=== PATIENT | male | born 1930 | race Caucasian/White ===

== ENCOUNTER 2016-03-06 11:34 | Inpatient (IN) | payer MEDICARE, OTHER ==
[2016-03-06] MEDS ORDERED: NS 0.9% IV ONE (12:20)
[2016-03-06] MEDS ORDERED: Levofloxacin 750 MG IVPREMIX(* 750 MG/150 ML BAG IVPB ONE ×2 (12:25→12:31)
[2016-03-06] MEDS ORDERED: Piperac/Tazob 3.375 gm in NS* 3.375 GM/100 ML BAG IVPB ONE (12:25)
[2016-03-06] MEDS ORDERED: Azithromycin IV(*) 500 MG in NS 0.9% 250 ML* 250 ML IVPB ONE (12:25)
[2016-03-06] MEDS ORDERED: cefTRIAXone VIAL(*) 1,000 MG in NS 0.9% 50 ML* 50 ML IVPB ONE (12:26)
[2016-03-06] MEDS ORDERED: methylPREDNISolone 125 MG* 2 ML VIAL IV ONE (12:32)
[2016-03-06 12:53] LABS: Hematocrit 35 % (42-52); Hemoglobin 11.5 g/dl (14.0-18.0); Mean Corpuscular HGB Conc 33 g/dl (31-36); Mean Corpuscular Hemoglobin 31 pg (27-31); Mean Corpuscular Volume 94 fL (80-94); Mean Platelet Volume 9 um3 (7.4-10.4); Red Blood Count 3.75 10^6/ul (4.0-5.4); Red Cell Distribution Width 16 % (10.5-15); White Blood Count 26.4 10^3/ul (3.5-10.8)
[2016-03-06 12:55] LABS: Add Diff/Slide Review? Slide Review Added; Comments Flag Yes
[2016-03-06 13:14] LABS: Albumin 3.3 g/dL (3.2-5.2); BUN/Creatinine Ratio 29.3 (8-20); Burr Cells 2+; Calcium 9.6 mg/dL (8.6-10.3); EGFR Non-African American 59.8 (>60); Globulin 3.3 g/dL (2-4); Potassium 3.8 mmol/L (3.5-5.0); Total Bilirubin 0.7 mg/dL (0.2-1.0); Total Protein 6.6 g/dL (6.4-8.9)
[2016-03-06 13:17] LABS: Troponin I 0.17 ng/mL (<0.04)
[2016-03-06 13:56] LABS: Urine Bacteria Absent (Absent); Urine Bilirubin Negative (Negative); Urine Glucose Negative (Negative); Urine Nitrite Negative (Negative)
--- NOTE | 2016-03-06 14:09 | RAD ---
INDICATION: Short of breath COMPARISON: November 07, 2014 TECHNIQUE: An AP portable view obtained at 1326 hours is submitted. FINDINGS: Bones/Soft Tissues: There are no acute bony findings. 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 There is left-sided cardiac pacemaker Cardiomediastinal: Limited assessment due to airspace disease in right hemithorax. Lungs: No gross infiltrates on the left. Progressive right-sided consolidative change superimposed upon chronic abnormalities. Pleura: There are no significant pleural effusions. Other: None IMPRESSION: PROGRESSIVE INFILTRATIVE CHANGE WITH CONSOLIDATION RIGHT HEMITHORAX SUPERIMPOSED UPON CHRONIC FINDINGS
--- NOTE | 2016-03-06 14:20 | ED ---
Erik Gardner Billy, scribed for Emilie Nur MD on 03/06/16 at 1224 . Complex/Multi-Sys Presentation - HPI Summary HPI Summary: Patient is an 85 year-old male coming to [facility] presenting with nasal and chest congestion, productive cough, and generalized weakness for the last 3 days. Patient is also experiencing auditory hallucinations. Family also reports that the patient has stopped eating yesterday. Medical records note that he was discharged with pneumonia in November 2014, and per today's nursing triage note, his states that he never fully recovered. He has recently been treated with multiple antibiotics. Nothing makes his symptoms better or worse. PMHx of asthma, COPD, PE. - History Of Current Complaint Chief Complaint: EDWeakness Time Seen by Provider: 03/06/16 12:14 Hx Obtained From: Patient, Family/Service Aide, Medical Records Onset/Duration: Gradual Onset, Lasting Days, Still Present Timing: Constant Severity Currently: Moderate Severity Initially: Moderate Aggravating Factor(s): none Alleviating Factor(s): none Associated Signs And Symptoms: Positive: Weakness, Cough, Decreased Oral Intake , Other - nasal and chest congestion; auditory hallucinations - Allergies/Home Medications Allergies/Adverse Reactions: Allergies Allergy/AdvReac Type Severity Reaction Status Date / Time Clopidogrel Allergy See Comment Verified 07/23/15 07:39 Home Medications: Home Medications Budesonide/Formote 160/4.5(NF) [Symbicort 160/4.5 (NF)] 2 puff INH BID 03/06/16 [History Confirmed 03/06/16] Clopidogrel TAB* [Plavix TAB*] 75 mg PO QAM 03/06/16 [History Confirmed 03/06/16 ] Metoprolol Tartrate TAB* [Lopressor TAB*] 12.5 mg PO BID 03/06/16 [History Confirmed 03/06/16] Multiple Vitamins W/ Minerals [Multivitamin Adults 50+] 1 tab PO DAILY 03/06/16 [History Confirmed 03/06/16] PMH/Surg Hx/FS Hx/Imm Hx Endocrine/Hematology History: Denies: Hx Diabetes Cardiovascular History: Reports: Hx Hypertension Denies: Hx Congestive Heart Failure, Hx Coronary Artery Disease, Hx Hypercholesterolemia, Hx Myocardial Infarction, Hx Valvular Heart Disease Respiratory History: Reports: Hx Asthma, Hx Chronic Obstructive Pulmonary Disease (COPD), Hx Pneumonia, Hx Pulmonary Embolism GI History: Reports: Hx Gastrointestinal Bleed History: Denies: Hx Renal Disease Sensory History: Denies: Hx Cataracts, Hx Deafness, Hx Hearing Aid Opthamlomology History: Denies: Hx Cataracts Neurological History: Reports: Other Neuro Impairments/Disorders - SUBDURAL HEMATOMA - Cancer History Cancer Type, Location and Year: prostate - Surgical History Surgery Procedure, Year, and Place: 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, HERNIA REPAIR X4, APPENDECTOMY Infectious Disease History: No Infectious Disease History: Denies: History Other Infectious Disease, Traveled Outside the [place] in Last 30 Days - Family History Known Family History: Negative: Cardiac Disease - Social History Occupation: Retired Lives: With Family - Alcohol Use: None Substance Use Type: Reports: None Smoking Status (MU): Never Smoked Tobacco Review of Systems Positive: Other - nasal congestion Positive: Cough, Other - chest congestion Positive: Other - decreased PO intake Neurological: Other - auditory hallucinations Positive: Weakness All Other Systems Reviewed And Are Negative: Yes Physical Exam Triage Information Reviewed: Yes Vital Signs On Initial Exam: Initial Vitals Temp Pulse Resp BP Pulse Ox 97.1 F 85 48 87/50 94 03/06/16 11:38 03/06/16 11:38 03/06/16 11:38 03/06/16 11:38 03/06/16 11:38 Vital Signs Reviewed: Yes Appearance: Positive: Ill-Appearing - Extremely ill-appearing, Cachectic Skin: Positive: Dry, Other - Extremities are cold to touch. Eyes: Positive: EOMI, ALTAF Neck: Positive: Supple, Nontender Respiratory/Lung Sounds: Positive: Decreased Breath Sounds - No breath sounds in right lung base; decreased breath sounds in left lung base. Cardiovascular: Positive: RRR Abdomen Description: Positive: Nontender, Soft Musculoskeletal: Positive: Edema Left - Bilateral lower extremity edema up to the knees., Edema Right - Bilateral lower extremity edema up to the knees., Other - Severely kyphotic. Neurological: Positive: Sensory/Motor Intact, Alert, Oriented to Person Place, Time, CN Intact II-III Psychiatric: Positive: Affect/Mood Appropriate Diagnostics - Vital Signs Vital Signs Temp Pulse Resp BP Pulse Ox 03/06/16 12:16 96 03/06/16 12:03 22 86/59 03/06/16 11:38 97.1 F 85 48 87/50 94 - Laboratory Lab Results: Lab Results 03/06/16 03/06/16 03/06/16 Range/Units 12:15 12:15 12:15 WBC 26.4 H (3.5-10.8) 10^3/ul RBC 3.75 L (4.0-5.4) 10^6/ul Hgb 11.5 L (14.0-18.0) g/dl Hct 35 L (42-52) % MCV 94 (80-94) fL MCH 31 (27-31) pg MCHC 33 (31-36) g/dl RDW 16 H (10.5-15) % Plt Count 312 (150-450) 10^3/ul MPV 9 (7.4-10.4) um3 Neut % (Auto) 97.2 H (38-83) % Lymph % (Auto) 0.5 L (25-47) % [place] % (Auto) 2.1 (1-9) % Eos % (Auto) 0 (0-6) % Baso % (Auto) 0.2 (0-2) % Absolute Neuts (auto) 25.6 H (1.5-7.7) 10^3/ul Absolute Lymphs (auto) 0.1 L (1.0-4.8) 10^3/ul Absolute Monos (auto) 0.6 (0-0.8) 10^3/ul Absolute Eos (auto) 0 (0-0.6) 10^3/ul Absolute Basos (auto) 0.1 (0-0.2) 10^3/ul Absolute Nucleated RBC 0 10^3/ul Nucleated RBC % 0 Normal RBC Morphology Not Reportable Vibha Cells 2+ INR (Anticoag Therapy) 0.92 (0.89-1.11) APTT 34.3 (26.0-36.3) seconds Sodium 134 (133-145) mmol/L Potassium 3.8 (3.5-5.0) mmol/L Chloride 89 L (101-111) mmol/L Carbon Dioxide 36 H (22-32) mmol/L Anion Gap 9 (2-11) mmol/L BUN 34 H (6-24) mg/dL Creatinine 1.16 (0.67-1.17) mg/dL Est GFR ( Amer) 77.0 (>60) Est GFR (Non-Af Amer) 59.8 (>60) BUN/Creatinine Ratio 29.3 H (8-20) Glucose 92 (70-100) mg/dL Lactic Acid (0.5-2.0) mmol/L Calcium 9.6 (8.6-10.3) mg/dL Total Bilirubin 0.70 (0.2-1.0) mg/dL AST 39 (13-39) U/L ALT 23 (7-52) U/L Alkaline Phosphatase 155 H (34-104) U/L Troponin I 0.17 H* (<0.04) ng/mL B-Natriuretic Peptide ( - 100) pg/mL Total Protein 6.6 (6.4-8.9) g/dL Albumin 3.3 (3.2-5.2) g/dL Globulin 3.3 (2-4) g/dL Albumin/Globulin Ratio 1.0 (1-3) Urine Color Urine Appearance Urine pH (5-9) Ur Specific Lawrence (1.010-1.030) Urine Protein (Negative) Urine Ketones (Negative) Urine Blood (Negative) Urine Nitrate (Negative) Urine Bilirubin (Negative) Urine Urobilinogen (Negative) Ur Leukocyte Esterase (Negative) Urine WBC (Auto) (Absent) Urine RBC (Auto) (Absent) Ur Squamous Epith Cells (Absent) Urine Bacteria (Absent) Hyaline Casts (Absent) Urine Glucose (Negative) Influenza A (Rapid) (Negative) Influenza B (Rapid) (Negative) 03/06/16 03/06/16 03/06/16 Range/Units 12:15 12:15 12:49 WBC (3.5-10.8) 10^3/ul RBC (4.0-5.4) 10^6/ul Hgb (14.0-18.0) g/dl Hct (42-52) % MCV (80-94) fL MCH (27-31) pg MCHC (31-36) g/dl RDW (10.5-15) % Plt Count (150-450) 10^3/ul MPV (7.4-10.4) um3 Neut % (Auto) (38-83) % Lymph % (Auto) (25-47) % [place] % (Auto) (1-9) % Eos % (Auto) (0-6) % Baso % (Auto) (0-2) % Absolute Neuts (auto) (1.5-7.7) 10^3/ul Absolute Lymphs (auto) (1.0-4.8) 10^3/ul Absolute Monos (auto) (0-0.8) 10^3/ul Absolute Eos (auto) (0-0.6) 10^3/ul Absolute Basos (auto) (0-0.2) 10^3/ul Absolute Nucleated RBC 10^3/ul Nucleated RBC % Normal RBC Morphology Vibha Cells INR (Anticoag Therapy) (0.89-1.11) APTT (26.0-36.3) seconds Sodium (133-145) mmol/L Potassium (3.5-5.0) mmol/L Chloride (101-111) mmol/L Carbon Dioxide (22-32) mmol/L Anion Gap (2-11) mmol/L BUN (6-24) mg/dL Creatinine (0.67-1.17) mg/dL Est GFR ( Amer) (>60) Est GFR (Non-Af Amer) (>60) BUN/Creatinine Ratio (8-20) Glucose (70-100) mg/dL Lactic Acid 2.3 H* (0.5-2.0) mmol/L Calcium (8.6-10.3) mg/dL Total Bilirubin (0.2-1.0) mg/dL AST (13-39) U/L ALT (7-52) U/L Alkaline Phosphatase (34-104) U/L Troponin I (<0.04) ng/mL B-Natriuretic Peptide 317 H ( - 100) pg/mL Total Protein (6.4-8.9) g/dL Albumin (3.2-5.2) g/dL Globulin (2-4) g/dL Albumin/Globulin Ratio (1-3) Urine Color Urine Appearance Urine pH (5-9) Ur Specific Lawrence (1.010-1.030) Urine Protein (Negative) Urine Ketones (Negative) Urine Blood (Negative) Urine Nitrate (Negative) Urine Bilirubin (Negative) Urine Urobilinogen (Negative) Ur Leukocyte Esterase (Negative) Urine WBC (Auto) (Absent) Urine RBC (Auto) (Absent) Ur Squamous Epith Cells (Absent) Urine Bacteria (Absent) Hyaline Casts (Absent) Urine Glucose (Negative) Influenza A (Rapid) Negative (Negative) Influenza B (Rapid) Negative (Negative) 03/06/16 Range/Units 13:39 WBC (3.5-10.8) 10^3/ul RBC (4.0-5.4) 10^6/ul Hgb (14.0-18.0) g/dl Hct (42-52) % MCV (80-94) fL MCH (27-31) pg MCHC (31-36) g/dl RDW (10.5-15) % Plt Count (150-450) 10^3/ul MPV (7.4-10.4) um3 Neut % (Auto) (38-83) % Lymph % (Auto) (25-47) % [place] % (Auto) (1-9) % Eos % (Auto) (0-6) % Baso % (Auto) (0-2) % Absolute Neuts (auto) (1.5-7.7) 10^3/ul Absolute Lymphs (auto) (1.0-4.8) 10^3/ul Absolute Monos (auto) (0-0.8) 10^3/ul Absolute Eos (auto) (0-0.6) 10^3/ul Absolute Basos (auto) (0-0.2) 10^3/ul Absolute Nucleated RBC 10^3/ul Nucleated RBC % Normal RBC Morphology Vibha Cells INR (Anticoag Therapy) (0.89-1.11) APTT (26.0-36.3) seconds Sodium (133-145) mmol/L Potassium (3.5-5.0) mmol/L Chloride (101-111) mmol/L Carbon Dioxide (22-32) mmol/L Anion Gap (2-11) mmol/L BUN (6-24) mg/dL Creatinine (0.67-1.17) mg/dL Est GFR ( Amer) (>60) Est GFR (Non-Af Amer) (>60) BUN/Creatinine Ratio (8-20) Glucose (70-100) mg/dL Lactic Acid (0.5-2.0) mmol/L Calcium (8.6-10.3) mg/dL Total Bilirubin (0.2-1.0) mg/dL AST (13-39) U/L ALT (7-52) U/L Alkaline Phosphatase (34-104) U/L Troponin I (<0.04) ng/mL B-Natriuretic Peptide ( - 100) pg/mL Total Protein (6.4-8.9) g/dL Albumin (3.2-5.2) g/dL Globulin (2-4) g/dL Albumin/Globulin Ratio (1-3) Urine Color Rohini Urine Appearance Cloudy Urine pH 5.0 (5-9) Ur Specific Lawrence 1.017 (1.010-1.030) Urine Protein 1+(30 mg/dl) H (Negative) Urine Ketones Negative (Negative) Urine Blood Negative (Negative) Urine Nitrate Negative (Negative) Urine Bilirubin Negative (Negative) Urine Urobilinogen Negative (Negative) Ur Leukocyte Esterase Negative (Negative) Urine WBC (Auto) Absent (Absent) Urine RBC (Auto) Absent (Absent) Ur Squamous Epith Cells Present H (Absent) Urine Bacteria Absent (Absent) Hyaline Casts Present H (Absent) Urine Glucose Negative (Negative) Influenza A (Rapid) (Negative) Influenza B (Rapid) (Negative) Result Diagrams: 03/06/16 12:15 03/06/16 12:15 Lab Statement: Any lab studies that have been ordered have been reviewed, and results considered in the medical decision making process. - Radiology CXR Radiology Interpretation Completed By: Radiologist - PROGRESSIVE INFILTRATIVE CHANGE WITH CONSOLIDATION RIGHT HEMITHORAX SUPERIMPOSED UPON CHRONIC FINDINGS - EKG 1300 EKG Interpretation: paced rhythm 71 bpm Re-Evaluation - Re-Evaluation First Eval Re-Evaluation Time: 13:23 Complex Multi-Symp Course/Dx Course Of Treatment: After discussion with both the patient and his family, at this time, they agree with the plan to intubate and resusucitate the patient if needed. 85 yo male cachectic with dry mucus membranes, tachypneic with copd and unremitting cough since nov after diagnosis of pneumonia. Per family he has been on multiple abx since discharge.pt stopped eating 1-2 days ago. Very reduced breath sounds (if any) on Rt, with green sputum,IV abx for Icu/ pseudomonas risk and 30cc/kg on pressure bag ordered upon initial evaluation of patient. WBc of 26K, bp remained in the 80's, ICU attending consulted and pt is now admitted to an icu bed - Diagnoses Provider Diagnoses: Pneumonia, Sepsis - Physician Notifications Discussed Care Of Patient With: Dr. Goins (hospitalist) @ 1310. Dr. Goldstein ( chamber walker) @ [id number]: will see patient in the ED. Discharge - Discharge Plan Condition: Stable Disposition: ADMITTED TO [facility] documentation as recorded by the Erik van Billy accurately reflects the service I personally performed and the decisions made by me, Emilie Nur MD.
[2016-03-06] MEDS ORDERED: cefTRIAXone VIAL(*) 1,000 MG in NS 0.9% 50 ML* 50 ML IVPB SCH (15:00)
[2016-03-06] MEDS ORDERED: Levofloxacin 500 MG IVPREMIX(* 500 MG/100 ML BAG IVPB ONE (15:30)
[2016-03-06] MEDS: Albuterol 2.5 MG/3 ML NEB.SOL* (0.083%) INH SCH ×2 (19:24→19:56)
[2016-03-06] MEDS: Heparin VIAL(*) 5000 UNITS/ML VIAL (FIVE THOUSAND) SUBCUT SCH (20:50)
[2016-03-06] MEDS: Metoprolol Tartrate TAB* 25 MG PO SCH (20:51)
--- NOTE | 2016-03-06 21:17 | HP ---
ADMISSION HISTORY AND PHYSICAL: DATE OF ADMISSION: 03/06/16 REASON FOR ADMISSION: Shortness of breath. HISTORY OF PRESENT ILLNESS: This patient is an 85-year-old white male with a history of asthma, pulmonary emboli, and hypertension, who presented to the emergency department today with a complaint of gradually increasing shortness of breath and difficulty swallowing. In the emergency department, chest x-ray showed extensive infiltration of the right lung, and because the patient was tachypneic and generally ill appearing, the decision was made to admit the patient to the intensive care unit for Vapotherm to expand right lung. The patient is a full code and family wants intubation if necessary. The patient has had substantial weight loss over the last year and has also had difficulty swallowing, and has an appointment to see Dr. Gutierrez of the GI service to have the dysphagia evaluated. He was hospitalized at [facility] [place] in November 2014 with the same complaints (shortness of breath and difficulty swallowing) and was treated for a right lower lobe pneumonia and discharged. The patient also has a history of coronary artery disease, status post stent placement 2 to 3 years ago, and has an implanted cardiac pacemaker. PAST SURGICAL HISTORY: 1. Cataract surgery. 2. Hernia repair. 3. Appendectomy. 4. Prostatectomy. OUTPATIENT MEDICATIONS: 1. Metoprolol tartrate 12.5 mg p.o. b.i.d. 2. Symbicort 2 puffs b.i.d. 3. Nitroglycerin 0.4 mg sublingually p.r.n. 4. Lipitor 40 mg daily. 5. Albuterol, 2.5 mg by neb 3 times daily. 6. Lasix 40 mg daily. DRUG ALLERGIES: CLOPIDOGREL: reaction unclear. REVIEW OF SYSTEMS: Noncontributory. PHYSICAL EXAMINATION GENERAL: The patient is a cachectic elderly male who appeared to be breathing comfortably. VITAL SIGNS: Temperature 97.2, heart rate 70 and regular, blood pressure 95/65 , O2 sat is 97% on 35 L per minute nasal O2 at a 100% FIO2. HEENT: There is no facial asymmetry. NECK: Supple and there were no masses noted. LUNGS: There were diminished breath sounds throughout the right lung with coarse rhonchi on both sides. No crackles were appreciated. CARDIAC: Exam revealed no murmurs, rubs, or gallops. 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 ABDOMEN: Soft and nontender. EXTREMITIES: Warm and there was no cyanosis or edema. ADMISSION LABORATORY DATA: Significant for a leukocytosis of 26.4, serum bicarbonate of 36, BUN of 34, and creatinine of 1.1. Lactic acid level of 2.3. Troponin is 0.17. Alk phos of 155 and BNP of 317. Albumin was 3.3 despite apparent cachectic appearance. Chest x-ray showed extensive consolidation and volume loss in the right lung of unknown duration (some changes may have been chronic due to chest wall abnormality). EKG showed a paced rhythm with no other abnormalities noted. IMPRESSION: This is an ill-appearing, dehydrated, elderly gentleman whose respiratory complaints appear to be more chronic than acute, and whose main problem appears to be extensive weight loss and cachexia. The patient has a severe chest wall deformity that will predispose him to lung infections and may also explain the changes on the chest x-ray. The difficulty swallowing appears to be a chronic problem, but deserves evaluation. MANAGEMENT PLAN: Acute management will include antibiotics (ceftriaxone and levofloxacin), high flow, humidified nasal O2 (Vapotherm), and intravenous fluids. We will continue outpatient medications and consult GI for evaluation of swallowing difficulty. The patient's present at the bedside and is aware of the admission diagnosis and management plan. CRITICAL CARE TIME: Sixty minutes. [id number]/CPS #: [id number] ALBERTO
[2016-03-06] MEDS ORDERED: [UNRECOGNIZED DRUG - REMARK] IV ONE (22:15)
[2016-03-07] MEDS ORDERED: LR IV ONE (00:33)
[2016-03-07] MEDS: Albuterol 2.5 MG/3 ML NEB.SOL* (0.083%) INH SCH ×4 (03:16→21:03)
[2016-03-07 05:17] LABS: Hematocrit 31 % (42-52); Hemoglobin 10.1 g/dl (14.0-18.0); Mean Corpuscular HGB Conc 33 g/dl (31-36); Mean Corpuscular Hemoglobin 31 pg (27-31); Mean Corpuscular Volume 94 fL (80-94); Mean Platelet Volume 9 um3 (7.4-10.4); Red Blood Count 3.27 10^6/ul (4.0-5.4); Red Cell Distribution Width 16 % (10.5-15); White Blood Count 13.4 10^3/ul (3.5-10.8)
[2016-03-07 05:30] LABS: BUN/Creatinine Ratio 32.6 (8-20); Calcium 8.9 mg/dL (8.6-10.3); EGFR African American 108.7 (>60); EGFR Non-African American 84.5 (>60); Potassium 4.1 mmol/L (3.5-5.0)
--- NOTE | 2016-03-07 08:51 | RAD ---
Indication: Pneumonia and atelectasis. Single frontal view of the chest performed at 0600 hours was reviewed. Comparison is made with previous exam dated March 06, 2016. Cardiomegaly is noted. Tortuous descending aorta is noted. Right lower lobe and right upper lobe airspace disease in density persists. Pacemaker leads are in place. The visualized left lung is otherwise unremarkable. There may be a loculated right pleural effusion noted or atelectasis in the right base. IMPRESSION: PROGRESSIVE DENSITY IN THE RIGHT LUNG BASE WITH QUESTION OF ATELECTASIS, CONSOLIDATION OR RIGHT PLEURAL EFFUSION. RIGHT UPPER LOBE INFILTRATE IS UNCHANGED.
[2016-03-07] MEDS ORDERED: Clopidogrel TAB* 75 MG PO SCH (09:00)
[2016-03-07] MEDS: LR @ 20 MLS/HR IV SCH ×2 (09:32→21:45)
[2016-03-07] MEDS: Metoprolol Tartrate TAB* 25 MG PO SCH ×2 (11:32→21:03)
[2016-03-07] MEDS: cefTRIAXone* 1 GM in NS 0.9% 50 ML BAG IVPB SCH (11:33)
[2016-03-07] MEDS: Heparin VIAL(*) 5000 UNITS/ML VIAL (FIVE THOUSAND) SUBCUT SCH ×2 (11:43→21:12)
[2016-03-07] MEDS ORDERED: Morphine INJ* 4 MG/ML 1 ML CARPUJECT ONE (14:55)
[2016-03-07] MEDS: Morphine INJ* 4 MG/ML 1 ML CARPUJECT IV PRN ×2 (15:12→20:11)
[2016-03-07] MEDS ORDERED: Levofloxacin 250 MG IVPREMX(*) 250 MG/50 ML BAG IVPB SCH (15:30)
--- NOTE | 2016-03-07 15:33 | PN ---
Critical Care Services: Patient had an uneventful evening but this AM experienced increasing SOB and now on BiPAP. Has problems swallowing pureed food. Vital Signs: Temp Pulse Resp BP SpO2 FiO2 97.5 F 75 34 110/65 96 75 Physical Exam: Gen:Alert, oriented Lungs:scattered rhonchi both lungs. Decreased breath sounds on right Extremities:cool. No cyanosis or edema. Fluid Balance (Past 24 Hours): 03/07/16 06:59 Intake Total 3395 Output Total 375 Balance +3020 Weight 135 lb Intake: IV Fluids 3315 LR 3315 IVPB 55 ABX - CEFTRIAXONE 55 Oral 25 Output: Blackwell 375 Labs: 0 03/07/16 03/07/16 05:08 05:08 WBC 13.4 Hgb 10.1 Hct 31 Plt Count 270 Sodium 132 Potassium 4.1 Chloride 95 Carbon Dioxide 32 BUN 28 Creatinine 0.86 Glucose 100 Calcium 8.9 Studies: CXR: No change from admission film. Sputum culture growing Staph aureus (and Gram's stain shows lots of gram-positive cocci) Nutrition: Mechanical soft diet. Impression: Borderline respiratory status - has problems clearing secretions due to chest wall deformity and generalized weakness (i.e., chronic problems), and now may have staph pneumonia. Opacifications on CXR may also represent lobar atelectasis , or may be chronic changes associated with chest wall deformity.. Plan: Start Rx with vancomycin and d/c levofloxacin. Use BiPAP to re-expand atelectatic areas of right lung, and trial intubation, if necessary (can perform bronchoscopy if intubated). Will also ask for swallowing evaluation if off ventilator. Prognosis guarded Critical Care Time: 40 minutes
[2016-03-07] MEDS ORDERED: Vancomycin(*) 1,000 MG in NS 0.9% 250 ML* 250 ML IVPB ONE (15:46)
[2016-03-07] MEDS ORDERED: Furosemide IV* 10 MG/ML VIAL (40 MG) IV SLOW PU ONE (19:58)
[2016-03-07] MEDS ORDERED: Morphine INJ* 2 MG/ML 1 ML CARPUJECT IV ONE (20:05)
[2016-03-07 20:08] LABS: FIO2 100
[2016-03-07] MEDS ORDERED: Furosemide IV* 10 MG/ML VIAL (40 MG) ONE (20:10)
[2016-03-07 20:15] LABS: PCO2 Arterial > 124 mmHg (35-45)
[2016-03-07] MEDS ORDERED: Succinylcholine* 20 MG/ML 10 ML VIAL ONE (20:17)
[2016-03-07] MEDS ORDERED: Etomidate* 2 MG/ML 20 ML VIAL (40 MG) ONE (20:20)
[2016-03-07] MEDS ORDERED: Propofol* 100 ML ONE (20:31)
--- NOTE | 2016-03-07 20:47 | PN ---
Milton Gardner Anna, scribed for Horacio Enciso MD on 03/07/16 at 2036 . Procedures - Intubation Time of Intubation: 20:30 Intubation Method: orotracheal Tube Size (cm): 7.5 - with glidescope Medications: Succinylcholine Intubation Complications: no complications Post Intubation Xray: Yes - hospitalist tto review Progress/Xray Impression: 100 sux and 20 etomidate; lung sounds verified bilat , no epigastric sounds The documentation as recorded by the Milton van Anna accurately reflects the service I personally performed and the decisions made by Zaria lynn Jerry, MD.
--- NOTE | 2016-03-07 21:01 | RAD ---
Indication: Dyspnea. Single frontal view of the chest performed at 2015 hours was reviewed. Comparison is made with previous exam dated earlier the same day. Cardiomegaly is noted. Right pleural effusion is noted. Interstitial edema is noted. Overall exam does not appear to be significantly changed since previous exam. IMPRESSION: PERSISTENT RIGHT PLEURAL EFFUSION AND RIGHT UPPER LOBE INFILTRATE.
--- NOTE | 2016-03-07 21:31 | RAD ---
Indication: Endotracheal tube placement, respiratory failure. Single frontal view of the chest performed at 2040 hours was reviewed. Comparison is made with previous exam dated March 07, 2016. ET tube is just at the reese. Right pleural effusion in the right upper lobe infiltrate persists. IMPRESSION: ET TUBE JUST ABOVE THE REESE. RIGHT PLEURAL EFFUSION AND RIGHT UPPER LOBE INFILTRATE PERSISTS.
[2016-03-07] MEDS ORDERED: NS 0.9% 1000 ML* 1,000 ML IV ONE (21:39)
[2016-03-07 22:52] LABS: PCO2 Arterial 80 mmHg (35-45)
[2016-03-07] MEDS ORDERED: Dexmedetomidine* 50 ML ONE (23:29)
[2016-03-08] MEDS ORDERED: NS 0.9% 1000 ML* 1,000 ML IV ONE (00:17)
[2016-03-08] MEDS: Chlorhexidine MOUTHWASH 0.12%* 15 ML UDC SWISH SPIT SCH ×7 (00:18→22:21)
[2016-03-08] MEDS: Morphine INJ* 4 MG/ML 1 ML CARPUJECT IV PRN ×4 (00:44→20:21)
[2016-03-08] MEDS: Albuterol 2.5 MG/3 ML NEB.SOL* (0.083%) INH SCH ×5 (02:40→21:14)
[2016-03-08] MEDS: Dexmedetomidine* 50 ML IVPB SCH ×6 (03:03→21:43)
[2016-03-08] MEDS ORDERED: NS 0.9% 1000 ML* 1,000 ML IV SCH (04:15)
[2016-03-08] MEDS ORDERED: NS 0.9% 250 ML* 250 ML IV SCH (05:00)
[2016-03-08 05:07] LABS: Hematocrit 30 % (42-52); Hemoglobin 9.6 g/dl (14.0-18.0); Mean Corpuscular HGB Conc 32 g/dl (31-36); Mean Corpuscular Hemoglobin 30 pg (27-31); Mean Corpuscular Volume 94 fL (80-94); Mean Platelet Volume 9 um3 (7.4-10.4); Red Blood Count 3.15 10^6/ul (4.0-5.4); Red Cell Distribution Width 16 % (10.5-15); White Blood Count 15.2 10^3/ul (3.5-10.8)
[2016-03-08] MEDS ORDERED: Vancomycin(*) 750 MG in NS 0.9% 250 ML* 250 ML IVPB SCH (06:00)
[2016-03-08] MEDS: Heparin VIAL(*) 5000 UNITS/ML VIAL (FIVE THOUSAND) SUBCUT SCH ×2 (11:22→21:12)
[2016-03-08] MEDS: cefTRIAXone* 1 GM in NS 0.9% 50 ML BAG IVPB SCH (11:47)
[2016-03-08] MEDS: methylPREDNISolone SOD 40 MG* 1 ML VIAL IV SCH ×2 (12:00→19:43)
--- NOTE | 2016-03-08 12:03 | PN ---
Progress Note - Progress Note Note: CRITICAL CARE MEDICINE Date: 03/08/16 Time: 900 SUBJECTIVE: Patient seen and examined. at bedside. Sedated with precedex. Unable to obtain og/ng last pm. PHYSICAL EXAM: thin, frail, kyphotic Vital Signs: Reviewed. Neurologic: awakens, slow to communicate. HEENT: pupils equal. Sclera anicteric. Trachea midline. Cardiovascular: distant, S1 S2 Respiratory: dec bs on right with mild rhonchi and coarse Abdomen: Soft, nt. No r/g/r. Extremities: Warm. Chronic dep edema LABS: Reviewed. IMAGING: Reviewed. MEDICATIONS: Reviewed. ASSESSMENT: 85 M Acute hypercarbic > hypoxic resp failure COPD exac Staph A pna h/o CAD PLAN: Neurologic: lower dose precedex. not requiring much else. watch for delirium Cardiovascular: Perfusing. Interstial volume overload vs his optivolemic status. Can dec IVF. Respiratory: chad vol control and no surprise having high airway pressures. needs time to recruit. sbt festus am and look towards to liberation, potentially to niv, as his mechanics will never indicate well and see if he can maximize. may need lasix still Gastrointestinal: ogt was not able to pass. can re-attempt later, but do not traumatize as we will look to liberate tomorrow perhaps anyway. sup Renal/Metabolic: back down on fluid and see if he can mobilize Infectious Disease: can utilize C3 alone for pna coverage, although this seems more like aspiration then typical pneumonia. no indication of mrsa coverage need. Hematology: stable. hsq Endocrine: course of steroids for what it may be worth to help allievate his acute ailment. Musculoskeletal: bedrest today given his limits. Psych/Social: updated and expressed understanding Supportive and preventative care as ordered. SUP: ppi VTE prophylaxis: heparin Blackwell catheter given critical illness, monitoring needs for accurate assessment of BR[place] and KDIGO criteria for critically ill patients and to avoid potential harms of urinary retention, skin breakdown/ulcers. Disposition: ICU Code Status: Full Critical Care Time: 45min Olivia Garcia DO
[2016-03-08] MEDS: Pantoprazole IV* 40 MG IV SCH (13:00)
[2016-03-09] MEDS: Albuterol 2.5 MG/3 ML NEB.SOL* (0.083%) INH SCH ×4 (01:12→20:13)
[2016-03-09] MEDS: Morphine INJ* 4 MG/ML 1 ML CARPUJECT IV PRN ×4 (01:44→19:26)
[2016-03-09] MEDS: Chlorhexidine MOUTHWASH 0.12%* 15 ML UDC SWISH SPIT SCH ×6 (02:40→21:24)
[2016-03-09] MEDS: Dexmedetomidine* 50 ML IVPB SCH ×4 (02:55→12:15)
[2016-03-09] MEDS: methylPREDNISolone SOD 40 MG* 1 ML VIAL IV SCH ×3 (04:30→19:26)
[2016-03-09] MEDS ORDERED: Vancomycin Trough Check NOTE FOLLOW UP ONE (05:30)
[2016-03-09 06:20] LABS: Hematocrit 32 % (42-52); Hemoglobin 10.7 g/dl (14.0-18.0); Mean Corpuscular HGB Conc 33 g/dl (31-36); Mean Corpuscular Hemoglobin 31 pg (27-31); Mean Corpuscular Volume 93 fL (80-94); Mean Platelet Volume 10 um3 (7.4-10.4); Red Blood Count 3.46 10^6/ul (4.0-5.4); Red Cell Distribution Width 16 % (10.5-15); White Blood Count 9.7 10^3/ul (3.5-10.8)
[2016-03-09 06:30] LABS: Calcium 8.7 mg/dL (8.6-10.3); EGFR African American 91.3 (>60); Magnesium 2.1 mg/dL (1.9-2.7); Phosphorus 2.9 mg/dL (2.5-5.0); Potassium 4.4 mmol/L (3.5-5.0)
--- NOTE | 2016-03-09 08:03 | RAD ---
HISTORY: Pneumonia, respiratory failure COMPARISONS: March 07, 2016 VIEWS:1: Single frontal portable view of the chest at 7:15 AM. Evaluation is limited by positioning FINDINGS: LINES AND TUBES: A left-sided pacemaker is noted. An endotracheal tube is noted. The tip position is indeterminate given the degree of apical lordosis, but appears to be overlying the trachea at the level of the clavicle. CARDIOMEDIASTINAL SILHOUETTE: The cardiomediastinal silhouette is stable. PLEURA: There is blunting of the right costophrenic angle. LUNG PARENCHYMA: There is partial opacification of the right mid and upper lung marlow. Accounting for differences in technique, this is stable ABDOMEN: The upper abdomen is clear. There is no subphrenic gas. BONES AND SOFT TISSUES: No bone or soft tissue abnormalities are noted. IMPRESSION: 1. LIMITED STUDY. 2. LINES AND TUBES ABOVE. 3. RIGHT PLEURAL EFFUSION WITH PATCHY AIRSPACE DISEASE OF THE RIGHT LUNG, STABLE STABLE
[2016-03-09] MEDS ORDERED: Furosemide IV* 10 MG/ML VIAL (40 MG) IV SLOW PU ONE (09:15)
[2016-03-09] MEDS ORDERED: Albuterol/Ipratropium NEB.SOL* Albuterol 2.5 MG/Ipratropium 0.5 MG 3 ML ONE (10:30)
[2016-03-09] MEDS ORDERED: Albuterol/Ipratropium NEB.SOL* Albuterol 2.5 MG/Ipratropium 0.5 MG 3 ML INH PRN (10:31)
--- NOTE | 2016-03-09 11:34 | PN ---
Progress Note - Progress Note Note: CRITICAL CARE MEDICINE Date: 03/09/16 Time: 900 SUBJECTIVE: Patient seen and examined. at bedside. More awake and alert. Uncomfortable with ett. PHYSICAL EXAM: thin, frail Vital Signs: Reviewed. Neurologic: awakens, better communication. HEENT: pupils equal. Sclera anicteric. Trachea midline. Cardiovascular: distant, S1 S2 Respiratory: dec bs on right with mild rhonchi Abdomen: Soft, nt. Extremities: Warm. Chronic dep edema LABS: Reviewed. IMAGING: Reviewed. MEDICATIONS: Reviewed. ASSESSMENT: 85 M Acute hypercarbic > hypoxic resp failure COPD exac Staph A pna h/o CAD PLAN: Neurologic: lower dose precedex. not requiring much else. watch for delirium still Cardiovascular: Perfusing. Interstitial volume overload and can give diuretic this am. Respiratory: change to aprv to see if we can sustain any recruitment. May not tolerate well given his msk ailment and copd. Try. Otherwise, regardless will not look well on ppv and will look to liberate today. question is whether he can tolerate without ppv rescue in form of niv. Not really going to be helped with flow alone but will delineate his course post liberation. Gastrointestinal: re-eval swallow post liberation. sup Renal/Metabolic: lsix. f/u lytes Infectious Disease: C3 for sa pna coverage, although again this seems more like aspiration Hematology: stable. hsq Endocrine: course of steroid pulse. Musculoskeletal: progressive mobility Psych/Social: updated and expressed understanding Supportive and preventative care as ordered. SUP: ppi VTE prophylaxis: heparin Blackwell catheter given critical illness, monitoring needs for accurate assessment of BROOKLYNN and KDIGO criteria for critically ill patients and to avoid potential harms of urinary retention, skin breakdown/ulcers. Disposition: ICU Code Status: Full Critical Care Time: 35min Olivia Garcia DO
[2016-03-09] MEDS ORDERED: NS 0.9% 50 ML* 50 ML ONE (12:00)
[2016-03-09] MEDS: Heparin VIAL(*) 5000 UNITS/ML VIAL (FIVE THOUSAND) SUBCUT SCH ×2 (12:04→21:23)
[2016-03-09] MEDS: Pantoprazole IV* 40 MG IV SCH (12:10)
[2016-03-09] MEDS: cefTRIAXone* 1 GM in NS 0.9% 50 ML BAG IVPB SCH (13:19)
[2016-03-09] MEDS ORDERED: fentaNYL* 50 MCG/ML 2 ML VIAL (100 MCG VIAL) ONE (15:17)
[2016-03-09] MEDS ORDERED: fentaNYL* 50 MCG/ML 2 ML VIAL (100 MCG VIAL) IV SLOW PU ONE (15:39)
[2016-03-09] MEDS ORDERED: Propofol* 10 MG/ML 20 ML BTL IV PUSH ONE (15:40)
--- NOTE | 2016-03-09 15:43 | PN ---
Progress Note - Progress Note Note: CRITICAL CARE MEDICINE PROCEDURE NOTE DATE: 03/09/16 TIME: 1500 SERVICE: Critical Care Medicine LOCATION OF PROCEDURE: ICU PROCEDURE: Endotracheal intubation PROCEDURALIST: Dr. Garcia Consent obtain: Yes Time out held: Not indicated INDICATION: Acute respiratory failure. D/w pt. Post intubation with rapid shallow breathing. Pt states he is tired and can't get enough air. we discussed re-intubation and he is agreeable. Had previously discussed this with his . Will allow more time to see if his lungs can improve any bit further to re-attempt liberation in another few days, but likely as a DNI. PROCEDURE: Oxygenation maintained and vitals monitored. Patient in supine position. Pre-medication with fentanyl 100mcg / propofol 80 mg. MAC #4 inserted with Grade 2 view obtained. 8.0 endotracheal tube inserted to 24cm lip. Good chest rise with breath sounds appreciated in bilaterally lung marlow. EtCO2 + color change. OGT inserted with assistance of mac blade and placed with mild difficulty to 55cm. Portable chest x-ray pending. Patient otherwise tolerated well. Olivia Garcia,
[2016-03-09] MEDS: Propofol* 100 ML IV SCH ×2 (15:56→22:16)
[2016-03-09] MEDS ORDERED: Fluconazole 200 MG IVPREMIX(*) 200 MG/100 ML BAG IVPB ONE (16:00)
--- NOTE | 2016-03-09 16:13 | RAD ---
INDICATION: Respiratory distress. Reintubation. COMPARISON: March 09, 2016 TECHNIQUE: An AP portable view obtained at 1545 hours is submitted. FINDINGS: Bones/Soft Tissues: There are no acute bony findings. There is a cardiac pacemaker. An endotracheal tube is in the right mainstem bronchus. There is a nasogastric tube projected over the left upper quadrant. Cardiomediastinal: No interval changes. The heart is normal in size.. Lungs: Chronic alveolar and interstitial changes most severe on the right. Pleura: Bilateral effusions right greater left. Other: None IMPRESSION: AIRSPACE CHANGES RIGHT GREATER THAN LEFT WITH EFFUSIONS. ENDOTRACHEAL TUBE IN THE RIGHT MAINSTEM BRONCHUS. Findings called to ICU. The endotracheal tube has been pulled back.
[2016-03-10] MEDS: Chlorhexidine MOUTHWASH 0.12%* 15 ML UDC SWISH SPIT SCH ×6 (02:03→20:24)
[2016-03-10] MEDS: Albuterol 2.5 MG/3 ML NEB.SOL* (0.083%) INH SCH ×4 (02:48→19:57)
[2016-03-10] MEDS: methylPREDNISolone SOD 40 MG* 1 ML VIAL IV SCH ×2 (04:30→11:24)
[2016-03-10 06:05] LABS: BUN/Creatinine Ratio 42.1 (8-20); Calcium 8.4 mg/dL (8.6-10.3); EGFR African American 84.5 (>60); EGFR Non-African American 65.7 (>60); Magnesium 2.3 mg/dL (1.9-2.7); Phosphorus 3.5 mg/dL (2.5-5.0); Potassium 3.9 mmol/L (3.5-5.0)
[2016-03-10] MEDS: Heparin VIAL(*) 5000 UNITS/ML VIAL (FIVE THOUSAND) SUBCUT SCH ×2 (07:52→20:24)
[2016-03-10] MEDS: Propofol* 100 ML IV SCH ×3 (11:23→23:20)
[2016-03-10] MEDS: Pantoprazole IV* 40 MG IV SCH (11:30)
[2016-03-10] MEDS: cefTRIAXone* 1 GM in NS 0.9% 50 ML BAG IVPB SCH (11:33)
[2016-03-10] MEDS ORDERED: Fluconazole 200 MG IVPREMIX(*) 200 MG/100 ML BAG IVPB ONE (16:00)
[2016-03-10] MEDS: Fluconazole 100 MG IVPREMIX(*) 100 MG/50 ML BAG IVPB SCH (17:17)
[2016-03-11] MEDS: Chlorhexidine MOUTHWASH 0.12%* 15 ML UDC SWISH SPIT SCH ×6 (01:54→22:28)
[2016-03-11] MEDS: Propofol* 100 ML IV SCH ×4 (04:11→18:20)
[2016-03-11] MEDS: Albuterol 2.5 MG/3 ML NEB.SOL* (0.083%) INH SCH ×4 (06:16→21:09)
[2016-03-11 08:01] LABS: Hematocrit 32 % (42-52); Hemoglobin 10.6 g/dl (14.0-18.0); Mean Corpuscular HGB Conc 33 g/dl (31-36); Mean Corpuscular Hemoglobin 31 pg (27-31); Mean Corpuscular Volume 94 fL (80-94); Mean Platelet Volume 9 um3 (7.4-10.4); Red Blood Count 3.43 10^6/ul (4.0-5.4); Red Cell Distribution Width 17 % (10.5-15); White Blood Count 17.5 10^3/ul (3.5-10.8)
[2016-03-11 08:06] LABS: Add Diff/Slide Review? Slide Review Added; Comments Flag Yes
[2016-03-11 08:12] LABS: Calcium 8.5 mg/dL (8.6-10.3); EGFR African American 105.8 (>60); EGFR Non-African American 82.3 (>60); Potassium 3.9 mmol/L (3.5-5.0)
[2016-03-11] MEDS: methylPREDNISolone SOD 40 MG* 1 ML VIAL IV SCH (08:23)
[2016-03-11] MEDS: Heparin VIAL(*) 5000 UNITS/ML VIAL (FIVE THOUSAND) SUBCUT SCH ×2 (08:23→20:13)
[2016-03-11] MEDS ORDERED: Furosemide IV* 10 MG/ML VIAL (40 MG) IV SLOW PU ONE (09:12)
[2016-03-11] MEDS: Lansoprazole SOLUTAB* 30 MG G TUBE SCH (09:36)
[2016-03-11] MEDS ORDERED: Potassium Chloride LIQUID* 20 MEQ PACKET G TUBE ONE (10:00)
--- NOTE | 2016-03-11 12:00 | PN ---
Progress Note - Progress Note Note: CRITICAL CARE MEDICINE Date: 03/10/16 Time: 835 LATE ENTRY SUBJECTIVE: Patient seen and examined. updated bedside. PHYSICAL EXAM: thin, frail Vital Signs: Reviewed. Neurologic: awakens, better communication. HEENT: pupils equal. Sclera anicteric. Trachea midline. Cardiovascular: distant, S1 S2 Respiratory: mild rhonchi Abdomen: Soft, nt. Extremities: Warm. LABS: Reviewed. IMAGING: Reviewed. MEDICATIONS: Reviewed. ASSESSMENT: 85 M Acute hypercarbic > hypoxic resp failure COPD exac Staph A pna h/o CAD PLAN: Neurologic: lower dose prop. stable Cardiovascular: Perfusing. Interstitial volume still and see if he mobilizes Respiratory: "rest on vent" and see if he can foster any further recruitment. not tolerating aprv Gastrointestinal: tf continued Renal/Metabolic: f/u lasix needs to keep dry side. f/u lytes Infectious Disease: C3 continued for total 7 day anticipated course Hematology: stable. hsq Endocrine: lower steroid pulse. Musculoskeletal: progressive mobility as ablve Psych/Social: updated and expressed understanding Supportive and preventative care as ordered. SUP: ppi VTE prophylaxis: heparin Blackwell catheter given critical illness, monitoring needs for accurate assessment of BROOKLYNN and KDIGO criteria for critically ill patients and to avoid potential harms of urinary retention, skin breakdown/ulcers. Disposition: ICU Code Status: Full Critical Care Time: 35min Olivia Garcia DO
[2016-03-11] MEDS: cefTRIAXone* 1 GM in NS 0.9% 50 ML BAG IVPB SCH (12:03)
--- NOTE | 2016-03-11 12:04 | PN ---
Progress Note - Progress Note Note: CRITICAL CARE MEDICINE Date: 03/11/16 Time: 1130 SUBJECTIVE: Patient seen and examined. updated bedside. PHYSICAL EXAM: thin, frail Vital Signs: Reviewed. Neurologic: awakens, communicating HEENT: pupils equal. Sclera anicteric. Trachea midline. Cardiovascular: distant, S1 S2, paced Respiratory: less rhonchi just course Abdomen: Soft, nt. Extremities: Warm. LABS: Reviewed. IMAGING: Reviewed. MEDICATIONS: Reviewed. ASSESSMENT: 85 M Acute hypercarbic > hypoxic resp failure COPD exac Staph A pna h/o CAD Failure to thrive PLAN: Neurologic: lower dose prop again. Cardiovascular: Perfusing. Interstitial volume mobilize with lasix this am Respiratory: cpap today; allow some wob and slow dec on ps as able. plan to rest tonight and look to liberate tomorrow directly to niv as a DNI Gastrointestinal: tf continued today Renal/Metabolic: lasix today. Infectious Disease: C3 for total 7 day anticipated course; wbc up post steroids. afeb Hematology: stable. hsq Endocrine: steroid pulse can complete after liberation. Musculoskeletal: progressive mobility as able Psych/Social: updated and expressed understanding; discussed molst and she will sign tomorrow prior to liberation Supportive and preventative care as ordered. SUP: ppi VTE prophylaxis: heparin Blackwell catheter given critical illness, monitoring needs for accurate assessment of BROOKLYNN and KDIGO criteria for critically ill patients and to avoid potential harms of urinary retention, skin breakdown/ulcers. Disposition: ICU Code Status: Full presently Critical Care Time: 35min Olivia Garcia DO
[2016-03-11] MEDS: Fluconazole 100 MG IVPREMIX(*) 100 MG/50 ML BAG IVPB SCH (16:21)
[2016-03-11] MEDS: Morphine INJ* 4 MG/ML 1 ML CARPUJECT IV PRN (20:06)
[2016-03-12] MEDS: Morphine INJ* 4 MG/ML 1 ML CARPUJECT IV PRN ×3 (01:05→11:52)
[2016-03-12] MEDS: Chlorhexidine MOUTHWASH 0.12%* 15 ML UDC SWISH SPIT SCH ×4 (01:11→13:27)
[2016-03-12] MEDS: Albuterol 2.5 MG/3 ML NEB.SOL* (0.083%) INH SCH ×4 (03:26→19:26)
[2016-03-12] MEDS: Propofol* 100 ML IV SCH (04:14)
[2016-03-12] MEDS: Heparin VIAL(*) 5000 UNITS/ML VIAL (FIVE THOUSAND) SUBCUT SCH ×2 (09:10→20:47)
[2016-03-12] MEDS: Lansoprazole SOLUTAB* 30 MG G TUBE SCH (09:11)
[2016-03-12] MEDS: methylPREDNISolone SOD 40 MG* 1 ML VIAL IV SCH (09:11)
[2016-03-12] MEDS ORDERED: Furosemide IV* 10 MG/ML VIAL (40 MG) IV SLOW PU ONE (10:10)
--- NOTE | 2016-03-12 11:13 | PN ---
Progress Note - Progress Note Note: CRITICAL CARE MEDICINE Date: 03/12/16 Time: 900 SUBJECTIVE: Patient seen and examined. updated bedside. PHYSICAL EXAM: thin, frail Vital Signs: Reviewed. Neurologic: awakens, communicating but not holding capacity HEENT: pupils equal. Trachea midline. Cardiovascular: distant, S1 S2, paced Respiratory: course, distant Abdomen: Soft, nt. Extremities: Warm. LABS: Reviewed. IMAGING: Reviewed. MEDICATIONS: Reviewed. ASSESSMENT: 85 M Acute hypercarbic > hypoxic resp failure COPD exac Staph A pna h/o CAD Failure to thrive PLAN: Neurologic: off sedation. Cardiovascular: Perfusing. lasix this am to maintain dry Respiratory: cpap today and liberate directly to NIV as no other reversibilty. Explained to about DNI/DNR and pt not wanting trach, as that would be the only other option Gastrointestinal: tf held; f/u swallow potential later Renal/Metabolic: lasix today. lasb festus Infectious Disease: C3 for total 7 day Hematology: stable. hsq Endocrine: steroid pulse Musculoskeletal: progressive mobility as able Psych/Social: updated and expressed understanding, daughter present. Explained DNR/DNI, they expressed understanding but resistance to signing molst. Supportive and preventative care as ordered. SUP: ppi VTE prophylaxis: heparin Blackwell catheter given critical illness, monitoring needs for accurate assessment of BROOKLYNN and KDIGO criteria for critically ill patients and to avoid potential harms of urinary retention, skin breakdown/ulcers. Disposition: ICU Code Status: Full presently but looking to become DNR/DNI post liberation Critical Care Time: 35min Olivia Garcia DO
[2016-03-12] MEDS ORDERED: Morphine INJ* 2 MG/ML 1 ML CARPUJECT IV ONE (11:47)
[2016-03-12] MEDS: cefTRIAXone* 1 GM in NS 0.9% 50 ML BAG IVPB SCH (12:07)
[2016-03-12] MEDS ORDERED: Morphine INJ* 4 MG/ML 1 ML CARPUJECT IV PRN (15:00)
--- NOTE | 2016-03-12 15:15 | PN ---
Progress Note - Progress Note Note: CRITICAL CARE MEDICINE Date: 03/12/16 Time: 1500 Tolerating post liberation. first hour on bipap tolerated well and now to ct. still will have ventilation ailments to overcome, but better. bipap later today and tonight to help maintain. DNR/DNI. updated Critical Care Time: 5min Olivia Garcia, DO
[2016-03-12] MEDS: Fluconazole 100 MG IVPREMIX(*) 100 MG/50 ML BAG IVPB SCH (16:06)
[2016-03-13] MEDS: Albuterol 2.5 MG/3 ML NEB.SOL* (0.083%) INH SCH ×4 (04:14→19:19)
[2016-03-13 05:27] LABS: Hematocrit 35 % (42-52); Hemoglobin 11.2 g/dl (14.0-18.0); Mean Corpuscular HGB Conc 32 g/dl (31-36); Mean Corpuscular Hemoglobin 30 pg (27-31); Mean Corpuscular Volume 95 fL (80-94); Mean Platelet Volume 9 um3 (7.4-10.4); Red Blood Count 3.71 10^6/ul (4.0-5.4); Red Cell Distribution Width 17 % (10.5-15); White Blood Count 13.7 10^3/ul (3.5-10.8)
[2016-03-13 06:13] LABS: BUN/Creatinine Ratio 59.5 (8-20); Calcium 8.7 mg/dL (8.6-10.3); EGFR African American 111.7 (>60); EGFR Non-African American 86.8 (>60); Magnesium 2.5 mg/dL (1.9-2.7); Phosphorus 3.7 mg/dL (2.5-5.0)
[2016-03-13] MEDS: Heparin VIAL(*) 5000 UNITS/ML VIAL (FIVE THOUSAND) SUBCUT SCH ×2 (09:18→21:18)
[2016-03-13] MEDS: methylPREDNISolone SOD 40 MG* 1 ML VIAL IV SCH (09:18)
--- NOTE | 2016-03-13 11:28 | PN ---
Progress Note - Progress Note Note: CRITICAL CARE MEDICINE Date: 03/13/16 Time: 900 SUBJECTIVE: Patient seen and examined. updated bedside. PHYSICAL EXAM: thin, frail but looks better Vital Signs: Reviewed. Neurologic: awakens, communicating and holding capacity HEENT: pupils equal. adentious. Trachea midline. Cardiovascular: distant, S1 S2, paced Respiratory: course, distant and mild prolonged exp phase Abdomen: Soft, nt. Extremities: Warm. LABS: Reviewed. IMAGING: Reviewed. MEDICATIONS: Reviewed. ASSESSMENT: 85 M Acute hypercarbic > hypoxic resp failure COPD exac Staph A pna h/o CAD Failure to thrive Malnutrition mod degree PLAN: Neurologic: stable. Cardiovascular: Perfusing. optivolemic status. paced Respiratory: declined bipap overnight; will hold off on scheduled today but still at risk for needing rescue. utilize copd adjuctives. Gastrointestinal: swallow eval and puree diet today. Renal/Metabolic: tolerating. can leave robsion for now and out later today or tomorrow. Infectious Disease: C3 for total 7 day Hematology: stable. hsq Endocrine: steroid pulse can complete. Musculoskeletal: progressive mobility; PT Psych/Social: updated and expressed understanding; hopefully for floor tomorrow and then see how he is this and re-convene wednesday in term of realistic disposition planning, ie hospice potentials etc Supportive and preventative care as ordered. Disposition: ICU today Code Status: DNR/DNI Critical Care Time: 25min Olivia Garcia DO
[2016-03-13] MEDS ORDERED: Spiriva Inhaler DEVICE* 1 EACH DEVICE INH ONE (12:00)
[2016-03-13] MEDS: cefTRIAXone* 1 GM in NS 0.9% 50 ML BAG IVPB SCH (12:02)
[2016-03-13] MEDS: Tiotropium CAP.INH* CAP.INH/18 MCG (USE ORDER SET !) INH SCH (13:29)
[2016-03-13] MEDS: Fluconazole 100 MG IVPREMIX(*) 100 MG/50 ML BAG IVPB SCH (16:31)
[2016-03-13] MEDS: Mometasone/Formoter 200/5 MDI INH SCH (19:22)
[2016-03-14] MEDS: Albuterol 2.5 MG/3 ML NEB.SOL* (0.083%) INH SCH ×4 (01:41→19:56)
[2016-03-14 05:20] LABS: Hematocrit 33 % (42-52); Hemoglobin 10.6 g/dl (14.0-18.0); Mean Corpuscular HGB Conc 32 g/dl (31-36); Mean Corpuscular Hemoglobin 31 pg (27-31); Mean Corpuscular Volume 94 fL (80-94); Mean Platelet Volume 9 um3 (7.4-10.4); Red Blood Count 3.47 10^6/ul (4.0-5.4); Red Cell Distribution Width 17 % (10.5-15); White Blood Count 12.9 10^3/ul (3.5-10.8)
[2016-03-14 05:21] LABS: Add Diff/Slide Review? Slide Review Added; Comments Flag Yes
[2016-03-14 05:32] LABS: BUN/Creatinine Ratio 61.4 (8-20); Calcium 9.1 mg/dL (8.6-10.3); EGFR African American 113.2 (>60); EGFR Non-African American 88.1 (>60); Magnesium 2.6 mg/dL (1.9-2.7); Phosphorus 2.7 mg/dL (2.5-5.0); Potassium 4.9 mmol/L (3.5-5.0)
[2016-03-14] MEDS: Mometasone/Formoter 200/5 MDI INH SCH ×2 (08:13→19:57)
[2016-03-14] MEDS: Tiotropium CAP.INH* CAP.INH/18 MCG (USE ORDER SET !) INH SCH (08:13)
[2016-03-14] MEDS: Heparin VIAL(*) 5000 UNITS/ML VIAL (FIVE THOUSAND) SUBCUT SCH ×2 (09:02→21:43)
--- NOTE | 2016-03-14 10:21 | PN ---
Progress Note - Progress Note Note: CRITICAL CARE MEDICINE Date: 03/14/16 Time: 900 SUBJECTIVE: Patient seen and examined. at bedside. PHYSICAL EXAM: thin, frail, wasting Vital Signs: Reviewed. Neurologic: awakens, communicating and holding capacity HEENT: pupils equal. Trachea midline. Cardiovascular: distant, S1 S2, paced Respiratory: course, distant, still with baseline tachypnea Abdomen: Soft, nt. Extremities: Warm. LABS: Reviewed. IMAGING: Reviewed. MEDICATIONS: Reviewed. ASSESSMENT: 85 M Acute hypercarbic > hypoxic resp failure COPD exac Staph A pna Fungal pna h/o CAD Malnutrition mod degree PLAN: Neurologic: stable. Cardiovascular: Perfusing. optivolemic status. paced. add back outpt regimen. Respiratory: declines bipap. ON 6L NC. copd adjuctives. Flutter Gastrointestinal: puree diet continued Renal/Metabolic: contraction alkalosis post diuetics and steroids. can encourage po water intake. K ok. zeny robison Infectious Disease: C3 complted total 7 day; total 5 days diflucan for fungal airspace burden Hematology: stable. hsq Endocrine: steroid pulse completed and maintain off given contraction. Musculoskeletal: progressive mobility; PT Psych/Social: updated with pt. transfer to floor and ask palliative, social work to further eval wednesday to consider options. She desires to take pt home but may not be capable of needs. May be a bit unrealistic. We briefly discussed hospice as a good support. They will entertain options. Supportive and preventative care as ordered. Disposition: to floor Code Status: DNR/DNI Critical Care Time: 25min Olivia Garcia DO
[2016-03-14] MEDS: Clopidogrel TAB* 75 MG PO SCH (10:43)
[2016-03-14] MEDS: Aspirin Low Dose CHEW TAB* 81 MG PO SCH (10:43)
[2016-03-14] MEDS: Atorvastatin* 40 MG TAB PO SCH (16:26)
[2016-03-14] MEDS: Fluconazole 100 MG IVPREMIX(*) 100 MG/50 ML BAG IVPB SCH (16:26)
[2016-03-14] MEDS: Metoprolol Tartrate TAB* 25 MG PO SCH (21:43)
[2016-03-15] MEDS: Albuterol 2.5 MG/3 ML NEB.SOL* (0.083%) INH SCH ×4 (02:36→20:46)
[2016-03-15 05:26] LABS: BUN/Creatinine Ratio 66.2 (8-20); Calcium 8.9 mg/dL (8.6-10.3); EGFR African American 150.1 (>60); EGFR Non-African American 116.8 (>60); Potassium 4.3 mmol/L (3.5-5.0)
[2016-03-15] MEDS: Tiotropium CAP.INH* CAP.INH/18 MCG (USE ORDER SET !) INH SCH (07:53)
[2016-03-15] MEDS: Mometasone/Formoter 200/5 MDI INH SCH ×2 (07:54→20:52)
[2016-03-15] MEDS: Clopidogrel TAB* 75 MG PO SCH (08:22)
[2016-03-15] MEDS: Heparin VIAL(*) 5000 UNITS/ML VIAL (FIVE THOUSAND) SUBCUT SCH ×2 (08:25→20:49)
[2016-03-15] MEDS: Metoprolol Tartrate TAB* 25 MG PO SCH ×2 (08:25→20:48)
[2016-03-15] MEDS: Aspirin Low Dose CHEW TAB* 81 MG PO SCH (08:25)
--- NOTE | 2016-03-15 09:11 | PN ---
Subjective Date of Service: 03/15/16 Interval History: No new c/o. He admits to sometiems coughing when he eats. Objective Active Medications: Albuterol (Ventolin 2.5 Mg/3 Ml Neb.Imani*) 2.5 mg INH Q6H [facility] Last Admin: 03/15/16 07:53 Dose: 2.5 mg Albuterol/Ipratropium (Duoneb Neb.Imani*) 1 neb INH Q4H PRN PRN Reason: SOB/WHEEZING Aspirin (Aspirin Low Dose Tab*) 81 mg PO DAILY [facility] Last Admin: 03/15/16 08:25 Dose: 81 mg Atorvastatin Calcium (Lipitor*) 40 mg PO 1700 [facility] Last Admin: 03/14/16 16:26 Dose: 40 mg Heparin Sodium (Porcine) (Heparin Vial(*)) 5,000 units SUBCUT Q12HR [facility] Last Admin: 03/15/16 08:25 Dose: 5,000 units Metoprolol Tartrate (Lopressor Tab*) 12.5 mg PO Q12HR [facility] Last Admin: 03/15/16 08:25 Dose: 12.5 mg Mometasone Furoate/Formoterol Fumar (Dulera 200/5 Mdi*) 2 puff INH BID [facility] Last Admin: 03/15/16 07:54 Dose: 2 puff Tiotropium [place] (Spiriva Cap.Inh*) 1 cap INH DAILY [facility] Last Admin: 03/15/16 07:53 Dose: 1 inh Vital Signs 03/14/16 03/14/16 03/14/16 09:00 10:00 10:42 Temperature 97.8 F 97.6 F 97.8 F Pulse Rate Respiratory 19 23 28 Rate Blood Pressure 109/68 96/68 104/72 (mmHg) O2 Sat by Pulse Oximetry 03/14/16 03/14/16 03/14/16 11:00 12:00 12:50 Temperature 98.5 F 97.4 F Pulse Rate 79 Respiratory 28 20 Rate Blood Pressure 125/84 (mmHg) O2 Sat by Pulse 100 Oximetry 03/14/16 03/14/16 03/14/16 14:32 15:45 16:33 Temperature 97.3 F Pulse Rate 79 Respiratory 22 18 20 Rate Blood Pressure 131/72 (mmHg) O2 Sat by Pulse 88 Oximetry 03/14/16 03/14/16 03/14/16 16:43 19:45 20:00 Temperature Pulse Rate Respiratory 20 21 Rate Blood Pressure (mmHg) O2 Sat by Pulse 92 93 93 Oximetry 03/14/16 03/14/16 03/15/16 20:32 23:59 02:37 Temperature 96.7 F 97.3 F Pulse Rate 70 64 Respiratory 24 16 22 Rate Blood Pressure 126/72 148/72 (mmHg) O2 Sat by Pulse 89 Oximetry 03/15/16 03/15/16 03:22 07:54 Temperature 97.0 F Pulse Rate 66 64 Respiratory 16 20 Rate Blood Pressure 143/74 (mmHg) O2 Sat by Pulse 100 Oximetry Oxygen Devices in Use Now: Nasal Cannula Appearance: Alert, in a chair. In good spirits. Looks comfortable. Eyes: No Scleral Icterus Ears/Nose/Mouth/Throat: Clear Oropharnyx, Mucous Membranes Moist Neck: NL Appearance and Movements; NL JVP, No Thyroid Enlargement, Masses Respiratory: Symmetrical Chest Expansion and Respiratory Effort, Clear to Auscultation, Clear to Percussion Cardiovascular: NL Sounds; No Murmurs; No JVD, RRR, No Edema, - - PM L subclavicular area Abdominal: NL Sounds; No Tenderness; No Distention, No Hepatosplenomegaly, - Extremities: No Edema, No Clubbing, Cyanosis Skin: No Nodules or Sclerosis, - - 0.5 x 1.5 cm very superficial ulcer L medial malleolar area. Both lower legs lyperpigmented. Neurological: Alert and Oriented x 3, NL Sensation Result Diagrams: 03/14/16 05:10 03/15/16 04:53 Additional Lab and Data: Lab Results 03/06/16 03/06/16 03/06/16 Range/Units 12:15 12:15 12:15 WBC 26.4 H (3.5-10.8) 10^3/ul RBC 3.75 L (4.0-5.4) 10^6/ul Hgb 11.5 L (14.0-18.0) g/dl Hct 35 L (42-52) % MCV 94 (80-94) fL MCH 31 (27-31) pg MCHC 33 (31-36) g/dl RDW 16 H (10.5-15) % Plt Count 312 (150-450) 10^3/ul MPV 9 (7.4-10.4) um3 Neut % (Auto) 97.2 H (38-83) % Lymph % (Auto) 0.5 L (25-47) % [place] % (Auto) 2.1 (1-9) % Eos % (Auto) 0 (0-6) % Baso % (Auto) 0.2 (0-2) % Absolute Neuts (auto) 25.6 H (1.5-7.7) 10^3/ul Absolute Lymphs (auto) 0.1 L (1.0-4.8) 10^3/ul Absolute Monos (auto) 0.6 (0-0.8) 10^3/ul Absolute Eos (auto) 0 (0-0.6) 10^3/ul Absolute Basos (auto) 0.1 (0-0.2) 10^3/ul Absolute Nucleated RBC 0 10^3/ul Nucleated RBC % 0 Normal RBC Morphology Not Reportable [place]ha Cells 2+ INR (Anticoag Therapy) 0.92 (0.89-1.11) APTT 34.3 (26.0-36.3) seconds Sodium 134 (133-145) mmol/L Potassium 3.8 (3.5-5.0) mmol/L Chloride 89 L (101-111) mmol/L Carbon Dioxide 36 H (22-32) mmol/L Anion Gap 9 (2-11) mmol/L BUN 34 H (6-24) mg/dL Creatinine 1.16 (0.67-1.17) mg/dL Est GFR ( Amer) 77.0 (>60) Est GFR (Non-Af Amer) 59.8 (>60) BUN/Creatinine Ratio 29.3 H (8-20) Glucose 92 (70-100) mg/dL Lactic Acid (0.5-2.0) mmol/L Calcium 9.6 (8.6-10.3) mg/dL Total Bilirubin 0.70 (0.2-1.0) mg/dL AST 39 (13-39) U/L ALT 23 (7-52) U/L Alkaline Phosphatase 155 H (34-104) U/L Troponin I 0.17 H* (<0.04) ng/mL B-Natriuretic Peptide ( - 100) pg/mL Total Protein 6.6 (6.4-8.9) g/dL Albumin 3.3 (3.2-5.2) g/dL Globulin 3.3 (2-4) g/dL Albumin/Globulin Ratio 1.0 (1-3) Urine Color Urine Appearance Urine pH (5-9) Ur Specific [place] (1.010-1.030) Urine Protein (Negative) Urine Ketones (Negative) Urine Blood (Negative) Urine Nitrate (Negative) Urine Bilirubin (Negative) Urine Urobilinogen (Negative) Ur Leukocyte Esterase (Negative) Urine WBC (Auto) (Absent) Urine RBC (Auto) (Absent) Ur Squamous Epith Cells (Absent) Urine Bacteria (Absent) Hyaline Casts (Absent) Urine Glucose (Negative) Influenza A (Rapid) (Negative) Influenza B (Rapid) (Negative) 03/06/16 03/06/16 03/06/16 Range/Units 12:15 12:15 12:49 WBC (3.5-10.8) 10^3/ul RBC (4.0-5.4) 10^6/ul Hgb (14.0-18.0) g/dl Hct (42-52) % MCV (80-94) fL MCH (27-31) pg MCHC (31-36) g/dl RDW (10.5-15) % Plt Count (150-450) 10^3/ul MPV (7.4-10.4) um3 Neut % (Auto) (38-83) % Lymph % (Auto) (25-47) % [place] % (Auto) (1-9) % Eos % (Auto) (0-6) % Baso % (Auto) (0-2) % Absolute Neuts (auto) (1.5-7.7) 10^3/ul Absolute Lymphs (auto) (1.0-4.8) 10^3/ul Absolute Monos (auto) (0-0.8) 10^3/ul Absolute Eos (auto) (0-0.6) 10^3/ul Absolute Basos (auto) (0-0.2) 10^3/ul Absolute Nucleated RBC 10^3/ul Nucleated RBC % Normal RBC Morphology [place] Cells INR (Anticoag Therapy) (0.89-1.11) APTT (26.0-36.3) seconds Sodium (133-145) mmol/L Potassium (3.5-5.0) mmol/L Chloride (101-111) mmol/L Carbon Dioxide (22-32) mmol/L Anion Gap (2-11) mmol/L BUN (6-24) mg/dL Creatinine (0.67-1.17) mg/dL Est GFR ( Amer) (>60) Est GFR (Non-Af Amer) (>60) BUN/Creatinine Ratio (8-20) Glucose (70-100) mg/dL Lactic Acid 2.3 H* (0.5-2.0) mmol/L Calcium (8.6-10.3) mg/dL Total Bilirubin (0.2-1.0) mg/dL AST (13-39) U/L ALT (7-52) U/L Alkaline Phosphatase (34-104) U/L Troponin I (<0.04) ng/mL B-Natriuretic Peptide 317 H ( - 100) pg/mL Total Protein (6.4-8.9) g/dL Albumin (3.2-5.2) g/dL Globulin (2-4) g/dL Albumin/Globulin Ratio (1-3) Urine Color Urine Appearance Urine pH (5-9) Ur Specific [place] (1.010-1.030) Urine Protein (Negative) Urine Ketones (Negative) Urine Blood (Negative) Urine Nitrate (Negative) Urine Bilirubin (Negative) Urine Urobilinogen (Negative) Ur Leukocyte Esterase (Negative) Urine WBC (Auto) (Absent) Urine RBC (Auto) (Absent) Ur Squamous Epith Cells (Absent) Urine Bacteria (Absent) Hyaline Casts (Absent) Urine Glucose (Negative) Influenza A (Rapid) Negative (Negative) Influenza B (Rapid) Negative (Negative) 03/06/16 Range/Units 13:39 WBC (3.5-10.8) 10^3/ul RBC (4.0-5.4) 10^6/ul Hgb (14.0-18.0) g/dl Hct (42-52) % MCV (80-94) fL MCH (27-31) pg MCHC (31-36) g/dl RDW (10.5-15) % Plt Count (150-450) 10^3/ul MPV (7.4-10.4) um3 Neut % (Auto) (38-83) % Lymph % (Auto) (25-47) % [place] % (Auto) (1-9) % Eos % (Auto) (0-6) % Baso % (Auto) (0-2) % Absolute Neuts (auto) (1.5-7.7) 10^3/ul Absolute Lymphs (auto) (1.0-4.8) 10^3/ul Absolute Monos (auto) (0-0.8) 10^3/ul Absolute Eos (auto) (0-0.6) 10^3/ul Absolute Basos (auto) (0-0.2) 10^3/ul Absolute Nucleated RBC 10^3/ul Nucleated RBC % Normal RBC Morphology V[place]ha Cells INR (Anticoag Therapy) (0.89-1.11) APTT (26.0-36.3) seconds Sodium (133-145) mmol/L Potassium (3.5-5.0) mmol/L Chloride (101-111) mmol/L Carbon Dioxide (22-32) mmol/L Anion Gap (2-11) mmol/L BUN (6-24) mg/dL Creatinine (0.67-1.17) mg/dL Est GFR ( Amer) (>60) Est GFR (Non-Af Amer) (>60) BUN/Creatinine Ratio (8-20) Glucose (70-100) mg/dL Lactic Acid (0.5-2.0) mmol/L Calcium (8.6-10.3) mg/dL Total Bilirubin (0.2-1.0) mg/dL AST (13-39) U/L ALT (7-52) U/L Alkaline Phosphatase (34-104) U/L Troponin I (<0.04) ng/mL B-Natriuretic Peptide ( - 100) pg/mL Total Protein (6.4-8.9) g/dL Albumin (3.2-5.2) g/dL Globulin (2-4) g/dL Albumin/Globulin Ratio (1-3) Urine Color [place] Urine Appearance Cloudy Urine pH 5.0 (5-9) Ur Specific [place] 1.017 (1.010-1.030) Urine Protein 1+(30 mg/dl) H (Negative) Urine Ketones Negative (Negative) Urine Blood Negative (Negative) Urine Nitrate Negative (Negative) Urine Bilirubin Negative (Negative) Urine Urobilinogen Negative (Negative) Ur Leukocyte Esterase Negative (Negative) Urine WBC (Auto) Absent (Absent) Urine RBC (Auto) Absent (Absent) Ur Squamous Epith Cells Present H (Absent) Urine Bacteria Absent (Absent) Hyaline Casts Present H (Absent) Urine Glucose Negative (Negative) Influenza A (Rapid) (Negative) Influenza B (Rapid) (Negative) Microbiology and Other Data: Microbiology 03/07/16 20:45 Gram Stain - Final Sputum Induced Sputum Culture - Final Staphylococcus Aureus YEAST Normal Jayla 03/06/16 14:45 Nasal Screen MRSA (PCR)([facility]) - Final Nasal Mrsa Negative Assess/Plan/Problems-Billing Assessment: - Patient Problems (1) Aspiration pneumonia Current Visit: No Status: Acute Code(s): J69.0 - PNEUMONITIS DUE TO INHALATION OF FOOD AND VOMIT SNOMED Code(s): 045402262 Comment: Received levofloxacin, ceftriaxone, azithromycin, fluconazole, steroids. Swallow eval 03/13/16 showed probable aspiration with nectar thick liquids, recommend honey thick liquids and pureed solids. (2) CAD (coronary artery disease) Current Visit: No Status: Acute Code(s): I25.10 - ATHSCL HEART DISEASE OF [place] CORONARY ARTERY W/O ANG PCTRS SNOMED Code(s): 27541880 Comment: s/p two stents, pacer w/ AICD in [place] 08/2013. continue ASA, statin. I will ask if he is taking clopidogrel at home and why it is listed as an allergy. (3) COPD (chronic obstructive pulmonary disease) Current Visit: No Status: Acute Code(s): J44.9 - CHRONIC OBSTRUCTIVE PULMONARY DISEASE, UNSPECIFIED SNOMED Code(s): 98996676 Comment: Stable continue tiotropium, Duoneb, Dulera. (4) Hypertension Current Visit: No Status: Acute Code(s): I10 - ESSENTIAL (PRIMARY) HYPERTENSION SNOMED Code(s): 71346016 Comment: Continue Metoprolol.
[2016-03-15] MEDS: Atorvastatin* 40 MG TAB PO SCH (17:08)
[2016-03-16] MEDS: Albuterol 2.5 MG/3 ML NEB.SOL* (0.083%) INH SCH ×4 (01:18→20:30)
--- NOTE | 2016-03-16 07:25 | PN ---
Subjective Date of Service: 03/16/16 Interval History: No c/o. Objective Active Medications: Albuterol (Ventolin 2.5 Mg/3 Ml Neb.Imani*) 2.5 mg INH [id number] AWAKE [facility] Last Admin: 03/16/16 01:18 Dose: 2.5 mg Albuterol/Ipratropium (Duoneb Neb.Imani*) 1 neb INH Q4H PRN PRN Reason: SOB/WHEEZING Aspirin (Aspirin Low Dose Tab*) 81 mg PO DAILY [facility] Last Admin: 03/15/16 08:25 Dose: 81 mg Atorvastatin Calcium (Lipitor*) 40 mg PO 1700 [facility] Last Admin: 03/15/16 17:08 Dose: 40 mg Heparin Sodium (Porcine) (Heparin Vial(*)) 5,000 units SUBCUT Q12HR [facility] Last Admin: 03/15/16 20:49 Dose: 5,000 units Metoprolol Tartrate (Lopressor Tab*) 12.5 mg PO Q12HR [facility] Last Admin: 03/15/16 20:48 Dose: 12.5 mg Mometasone Furoate/Formoterol Fumar (Dulera 200/5 Mdi*) 2 puff INH BID [facility] Last Admin: 03/15/16 20:52 Dose: 2 puff Tiotropium [place] (Spiriva Cap.Inh*) 1 cap INH DAILY [facility] Last Admin: 03/15/16 07:53 Dose: 1 inh Vital Signs 03/15/16 03/15/16 03/15/16 07:54 08:00 12:36 Temperature Pulse Rate 64 60 Respiratory 20 16 16 Rate Blood Pressure 122/68 (mmHg) O2 Sat by Pulse 93 Oximetry 03/15/16 03/15/16 03/15/16 15:41 16:08 16:24 Temperature 97.2 F Pulse Rate 63 64 Respiratory 20 24 Rate Blood Pressure 137/70 (mmHg) O2 Sat by Pulse 100 100 Oximetry 03/15/16 03/15/16 03/15/16 20:00 20:52 23:27 Temperature Pulse Rate 76 69 Respiratory 20 20 17 Rate Blood Pressure 167/78 (mmHg) O2 Sat by Pulse 100 95 97 Oximetry 03/16/16 01:22 Temperature Pulse Rate 68 Respiratory 20 Rate Blood Pressure (mmHg) O2 Sat by Pulse 100 Oximetry Oxygen Devices in Use Now: Nasal Cannula Appearance: Alert, partly up in bed. In good spirits. Looks comfortable. Eyes: No Scleral Icterus Ears/Nose/Mouth/Throat: Clear Oropharnyx, Mucous Membranes Moist, - - edentulous Respiratory: Symmetrical Chest Expansion and Respiratory Effort, Clear to Auscultation, Clear to Percussion Cardiovascular: NL Sounds; No Murmurs; No JVD, RRR, No Edema, - Extremities: No Edema, No Clubbing, Cyanosis, - Skin: No Rash or Ulcers, No Nodules or Sclerosis, - Neurological: Alert and Oriented x 3, NL Sensation Result Diagrams: 03/14/16 05:10 03/15/16 04:53 Additional Lab and Data: Lab Results 03/06/16 03/06/16 03/06/16 Range/Units 12:15 12:15 12:15 WBC 26.4 H (3.5-10.8) 10^3/ul RBC 3.75 L (4.0-5.4) 10^6/ul Hgb 11.5 L (14.0-18.0) g/dl Hct 35 L (42-52) % MCV 94 (80-94) fL MCH 31 (27-31) pg MCHC 33 (31-36) g/dl RDW 16 H (10.5-15) % Plt Count 312 (150-450) 10^3/ul MPV 9 (7.4-10.4) um3 Neut % (Auto) 97.2 H (38-83) % Lymph % (Auto) 0.5 L (25-47) % [place] % (Auto) 2.1 (1-9) % Eos % (Auto) 0 (0-6) % Baso % (Auto) 0.2 (0-2) % Absolute Neuts (auto) 25.6 H (1.5-7.7) 10^3/ul Absolute Lymphs (auto) 0.1 L (1.0-4.8) 10^3/ul Absolute Monos (auto) 0.6 (0-0.8) 10^3/ul Absolute Eos (auto) 0 (0-0.6) 10^3/ul Absolute Basos (auto) 0.1 (0-0.2) 10^3/ul Absolute Nucleated RBC 0 10^3/ul Nucleated RBC % 0 Normal RBC Morphology Not Reportable Vibha Cells 2+ INR (Anticoag Therapy) 0.92 (0.89-1.11) APTT 34.3 (26.0-36.3) seconds Sodium 134 (133-145) mmol/L Potassium 3.8 (3.5-5.0) mmol/L Chloride 89 L (101-111) mmol/L Carbon Dioxide 36 H (22-32) mmol/L Anion Gap 9 (2-11) mmol/L BUN 34 H (6-24) mg/dL Creatinine 1.16 (0.67-1.17) mg/dL Est GFR ( Amer) 77.0 (>60) Est GFR (Non-Af Amer) 59.8 (>60) BUN/Creatinine Ratio 29.3 H (8-20) Glucose 92 (70-100) mg/dL Lactic Acid (0.5-2.0) mmol/L Calcium 9.6 (8.6-10.3) mg/dL Total Bilirubin 0.70 (0.2-1.0) mg/dL AST 39 (13-39) U/L ALT 23 (7-52) U/L Alkaline Phosphatase 155 H (34-104) U/L Troponin I 0.17 H* (<0.04) ng/mL B-Natriuretic Peptide ( - 100) pg/mL Total Protein 6.6 (6.4-8.9) g/dL Albumin 3.3 (3.2-5.2) g/dL Globulin 3.3 (2-4) g/dL Albumin/Globulin Ratio 1.0 (1-3) Urine Color Urine Appearance Urine pH (5-9) Ur Specific [place] (1.010-1.030) Urine Protein (Negative) Urine Ketones (Negative) Urine Blood (Negative) Urine Nitrate (Negative) Urine Bilirubin (Negative) Urine Urobilinogen (Negative) Ur Leukocyte Esterase (Negative) Urine WBC (Auto) (Absent) Urine RBC (Auto) (Absent) Ur Squamous Epith Cells (Absent) Urine Bacteria (Absent) Hyaline Casts (Absent) Urine Glucose (Negative) Influenza A (Rapid) (Negative) Influenza B (Rapid) (Negative) 03/06/16 03/06/16 03/06/16 Range/Units 12:15 12:15 12:49 WBC (3.5-10.8) 10^3/ul RBC (4.0-5.4) 10^6/ul Hgb (14.0-18.0) g/dl Hct (42-52) % MCV (80-94) fL MCH (27-31) pg MCHC (31-36) g/dl RDW (10.5-15) % Plt Count (150-450) 10^3/ul MPV (7.4-10.4) um3 Neut % (Auto) (38-83) % Lymph % (Auto) (25-47) % [place] % (Auto) (1-9) % Eos % (Auto) (0-6) % Baso % (Auto) (0-2) % Absolute Neuts (auto) (1.5-7.7) 10^3/ul Absolute Lymphs (auto) (1.0-4.8) 10^3/ul Absolute Monos (auto) (0-0.8) 10^3/ul Absolute Eos (auto) (0-0.6) 10^3/ul Absolute Basos (auto) (0-0.2) 10^3/ul Absolute Nucleated RBC 10^3/ul Nucleated RBC % Normal RBC Morphology Vibha Cells INR (Anticoag Therapy) (0.89-1.11) APTT (26.0-36.3) seconds Sodium (133-145) mmol/L Potassium (3.5-5.0) mmol/L Chloride (101-111) mmol/L Carbon Dioxide (22-32) mmol/L Anion Gap (2-11) mmol/L BUN (6-24) mg/dL Creatinine (0.67-1.17) mg/dL Est GFR ( Amer) (>60) Est GFR (Non-Af Amer) (>60) BUN/Creatinine Ratio (8-20) Glucose (70-100) mg/dL Lactic Acid 2.3 H* (0.5-2.0) mmol/L Calcium (8.6-10.3) mg/dL Total Bilirubin (0.2-1.0) mg/dL AST (13-39) U/L ALT (7-52) U/L Alkaline Phosphatase (34-104) U/L Troponin I (<0.04) ng/mL B-Natriuretic Peptide 317 H ( - 100) pg/mL Total Protein (6.4-8.9) g/dL Albumin (3.2-5.2) g/dL Globulin (2-4) g/dL Albumin/Globulin Ratio (1-3) Urine Color Urine Appearance Urine pH (5-9) Ur Specific [place] (1.010-1.030) Urine Protein (Negative) Urine Ketones (Negative) Urine Blood (Negative) Urine Nitrate (Negative) Urine Bilirubin (Negative) Urine Urobilinogen (Negative) Ur Leukocyte Esterase (Negative) Urine WBC (Auto) (Absent) Urine RBC (Auto) (Absent) Ur Squamous Epith Cells (Absent) Urine Bacteria (Absent) Hyaline Casts (Absent) Urine Glucose (Negative) Influenza A (Rapid) Negative (Negative) Influenza B (Rapid) Negative (Negative) 03/06/16 Range/Units 13:39 WBC (3.5-10.8) 10^3/ul RBC (4.0-5.4) 10^6/ul Hgb (14.0-18.0) g/dl Hct (42-52) % MCV (80-94) fL MCH (27-31) pg MCHC (31-36) g/dl RDW (10.5-15) % Plt Count (150-450) 10^3/ul MPV (7.4-10.4) um3 Neut % (Auto) (38-83) % Lymph % (Auto) (25-47) % [place] % (Auto) (1-9) % Eos % (Auto) (0-6) % Baso % (Auto) (0-2) % Absolute Neuts (auto) (1.5-7.7) 10^3/ul Absolute Lymphs (auto) (1.0-4.8) 10^3/ul Absolute Monos (auto) (0-0.8) 10^3/ul Absolute Eos (auto) (0-0.6) 10^3/ul Absolute Basos (auto) (0-0.2) 10^3/ul Absolute Nucleated RBC 10^3/ul Nucleated RBC % Normal RBC Morphology [place] Cells INR (Anticoag Therapy) (0.89-1.11) APTT (26.0-36.3) seconds Sodium (133-145) mmol/L Potassium (3.5-5.0) mmol/L Chloride (101-111) mmol/L Carbon Dioxide (22-32) mmol/L Anion Gap (2-11) mmol/L BUN (6-24) mg/dL Creatinine (0.67-1.17) mg/dL Est GFR ( Amer) (>60) Est GFR (Non-Af Amer) (>60) BUN/Creatinine Ratio (8-20) Glucose (70-100) mg/dL Lactic Acid (0.5-2.0) mmol/L Calcium (8.6-10.3) mg/dL Total Bilirubin (0.2-1.0) mg/dL AST (13-39) U/L ALT (7-52) U/L Alkaline Phosphatase (34-104) U/L Troponin I (<0.04) ng/mL B-Natriuretic Peptide ( - 100) pg/mL Total Protein (6.4-8.9) g/dL Albumin (3.2-5.2) g/dL Globulin (2-4) g/dL Albumin/Globulin Ratio (1-3) Urine Color [place] Urine Appearance Cloudy Urine pH 5.0 (5-9) Ur Specific [place] 1.017 (1.010-1.030) Urine Protein 1+(30 mg/dl) H (Negative) Urine Ketones Negative (Negative) Urine Blood Negative (Negative) Urine Nitrate Negative (Negative) Urine Bilirubin Negative (Negative) Urine Urobilinogen Negative (Negative) Ur Leukocyte Esterase Negative (Negative) Urine WBC (Auto) Absent (Absent) Urine RBC (Auto) Absent (Absent) Ur Squamous Epith Cells Present H (Absent) Urine Bacteria Absent (Absent) Hyaline Casts Present H (Absent) Urine Glucose Negative (Negative) Influenza A (Rapid) (Negative) Influenza B (Rapid) (Negative) Microbiology and Other Data: Microbiology 03/07/16 20:45 Gram Stain - Final Sputum Induced Sputum Culture - Final Staphylococcus Aureus YEAST Normal Jayla 03/06/16 14:45 Nasal Screen MRSA (PCR)(JES) - Final Nasal Mrsa Negative Assess/Plan/Problems-Billing Assessment: - Patient Problems (1) Aspiration pneumonia Current Visit: No Status: Acute Code(s): J69.0 - PNEUMONITIS DUE TO INHALATION OF FOOD AND VOMIT SNOMED Code(s): 101925739 Comment: Received levofloxacin, ceftriaxone, azithromycin, fluconazole, steroids. Swallow eval 03/13/16 showed probable aspiration with nectar thick liquids, recommend honey thick liquids and pureed solids. Likely will need STR. OT/PT ordered. Discussed with Dr. Richards. (2) CAD (coronary artery disease) Current Visit: No Status: Acute Code(s): I25.10 - ATHSCL HEART DISEASE OF THREE AFFILIATED CORONARY ARTERY W/O ANG PCTRS SNOMED Code(s): 63307425 Comment: s/p two stents, pacer w/ AICD in [place] 08/2013. continue ASA, statin. I will ask if he is taking clopidogrel at home and why it is listed as an allergy. (3) COPD (chronic obstructive pulmonary disease) Current Visit: No Status: Acute Code(s): J44.9 - CHRONIC OBSTRUCTIVE PULMONARY DISEASE, UNSPECIFIED SNOMED Code(s): 24355980 Comment: Stable continue tiotropium, Duoneb, Dulera. (4) Hypertension Current Visit: No Status: Acute Code(s): I10 - ESSENTIAL (PRIMARY) HYPERTENSION SNOMED Code(s): 50646084 Comment: Continue Metoprolol.
[2016-03-16] MEDS: Mometasone/Formoter 200/5 MDI INH SCH ×2 (08:04→20:31)
[2016-03-16] MEDS: Tiotropium CAP.INH* CAP.INH/18 MCG (USE ORDER SET !) INH SCH (08:05)
[2016-03-16] MEDS: Metoprolol Tartrate TAB* 25 MG PO SCH ×2 (09:31→21:35)
[2016-03-16] MEDS: Aspirin Low Dose CHEW TAB* 81 MG PO SCH (09:31)
[2016-03-16] MEDS: Heparin VIAL(*) 5000 UNITS/ML VIAL (FIVE THOUSAND) SUBCUT SCH ×2 (09:31→21:35)
[2016-03-16] MEDS: Atorvastatin* 40 MG TAB PO SCH (17:43)
[2016-03-17] MEDS: Albuterol 2.5 MG/3 ML NEB.SOL* (0.083%) INH SCH ×2 (01:03→08:49)
[2016-03-17] MEDS: Mometasone/Formoter 200/5 MDI INH SCH ×2 (08:59→20:54)
[2016-03-17] MEDS: Tiotropium CAP.INH* CAP.INH/18 MCG (USE ORDER SET !) INH SCH (09:01)
[2016-03-17] MEDS: Aspirin Low Dose CHEW TAB* 81 MG PO SCH (10:30)
[2016-03-17] MEDS: Heparin VIAL(*) 5000 UNITS/ML VIAL (FIVE THOUSAND) SUBCUT SCH ×2 (10:30→20:54)
[2016-03-17] MEDS: Metoprolol Tartrate TAB* 25 MG PO SCH ×2 (10:30→20:54)
[2016-03-17] MEDS ORDERED: Polyethylene Glycol 3350* 17 GM PACKET PO PRN (13:04)
--- NOTE | 2016-03-17 14:07 | PN ---
Subjective Date of Service: 03/17/16 Interval History: Patient seen this morning, slumped in chair. Reports some SOB, denies any pain. present at bedside. When discussing ZACHARY options patient says "Don't you give up on me". Family History: Unchanged from Admission Social History: Unchanged from Admission Past Medical History: Unchanged from Admission Objective Active Medications: Albuterol/Ipratropium (Duoneb Neb.Imani*) 1 neb INH Q4H PRN PRN Reason: SOB/WHEEZING Aspirin (Aspirin Low Dose Tab*) 81 mg PO DAILY [facility] Last Admin: 03/17/16 10:30 Dose: 81 mg Atorvastatin Calcium (Lipitor*) 40 mg PO 1700 [facility] Last Admin: 03/16/16 17:43 Dose: 40 mg Docusate Sodium (Colace Cap*) 100 mg PO DAILY [facility] Furosemide (Lasix Tab*) 40 mg PO QAM [facility] Heparin Sodium (Porcine) (Heparin Vial(*)) 5,000 units SUBCUT Q12HR [facility] Last Admin: 03/17/16 10:30 Dose: 5,000 units Metoprolol Tartrate (Lopressor Tab*) 12.5 mg PO Q12HR [facility] Last Admin: 03/17/16 10:30 Dose: 12.5 mg Mometasone Furoate/Formoterol Fumar (Dulera 200/5 Mdi*) 2 puff INH BID [facility] Last Admin: 03/17/16 08:59 Dose: 2 puff Polyethylene Glycol/Electrolytes (Miralax*) 17 gm PO DAILY PRN PRN Reason: CONSTIPATION Senna (Senokot Tab*) 1 tab PO DAILY [facility] Tiotropium [place] (Spiriva Cap.Inh*) 1 cap INH DAILY [facility] Last Admin: 03/17/16 09:01 Dose: 1 inh Vital Signs 03/16/16 03/16/16 03/16/16 15:43 20:00 20:29 Temperature Pulse Rate 79 79 Respiratory 20 16 Rate Blood Pressure 138/75 (mmHg) O2 Sat by Pulse 91 100 97 Oximetry 03/17/16 03/17/16 03/17/16 00:32 01:05 01:07 Temperature Pulse Rate 90 91 Respiratory 18 20 Rate Blood Pressure 112/69 (mmHg) O2 Sat by Pulse 94 100 100 Oximetry 03/17/16 03/17/16 03/17/16 07:21 08:00 09:02 Temperature 97.6 F Pulse Rate 88 20 Respiratory 32 18 22 Rate Blood Pressure 116/67 (mmHg) O2 Sat by Pulse 96 96 90 Oximetry Oxygen Devices in Use Now: Nasal Cannula Appearance: Elderly, frail, M, laying in chair in NAD Eyes: No Scleral Icterus Ears/Nose/Mouth/Throat: Mucous Membranes Moist Neck: NL Appearance and Movements; NL JVP Respiratory: Symmetrical Chest Expansion and Respiratory Effort, - - Coarse rales at both bases Cardiovascular: NL Sounds; No Murmurs; No JVD, RRR Abdominal: NL Sounds; No Tenderness; No Distention Lymphatic: No Cervical Adenopathy Extremities: - - RUE edema Skin: No Rash or Ulcers Neurological: - - Alert, oriented, no focal deficits Result Diagrams: 03/14/16 05:10 03/15/16 04:53 Additional Lab and Data: Microbiology and Other Data: Assess/Plan/Problems-Billing Assessment: Aspiration PNA, hypercarbic/hypoxic repsiratory failure requiring intubation in an 85 yo M with hx of HTN, CAD - Patient Problems (1) Aspiration pneumonia Current Visit: No Comment: combined respiratory failure. Received levofloxacin , ceftriaxone, azithromycin, fluconazole, steroids. Swallow eval 03/13/16 showed probable aspiration with nectar thick liquids, recommend honey thick liquids and pureed solids. Will need STR. Resume home Lasix (2) CAD (coronary artery disease) Current Visit: No Comment: s/p two stents, pacer w/ AICD in [place] 08/2013. continue ASA, statin. (3) COPD (chronic obstructive pulmonary disease) Current Visit: No Comment: Stable continue tiotropium, Duoneb, Dulera. (4) Hypertension Current Visit: No Comment: Continue Metoprolol. (5) DVT prophylaxis Current Visit: No Comment: Hep subQ
[2016-03-17] MEDS: Senna TAB PO SCH (14:46)
[2016-03-17] MEDS: Furosemide TAB* 20 MG PO SCH (14:46)
[2016-03-17] MEDS: Docusate CAP* 100 MG PO SCH (14:47)
[2016-03-17] MEDS: Atorvastatin* 40 MG TAB PO SCH (17:19)
--- NOTE | 2016-03-18 08:15 | DS ---
CC: Dr. Richards DISCHARGE SUMMARY: DATE OF ADMISSION: 03/06/16 DATE OF DISCHARGE: 03/18/16 PRIMARY CARE PHYSICIAN: Tommy Richards MD PRINCIPAL DISCHARGE DIAGNOSES: 1. Staph aureus pneumonia. 2. Acute hypercarbic and hypoxic respiratory failure. SECONDARY DIAGNOSES: 1. Coronary artery disease. 2. Chronic obstructive pulmonary disease. 3. Failure to thrive. STUDIES DONE DURING HOSPITALIZATION: Chest x-ray, impression: Progressive infiltrative change with consolidation in the right hemithorax superimposed upon chronic findings. DISCHARGE MEDICATIONS REGIMEN: 1. Aspirin 81 mg by mouth daily. 2. Atorvastatin 40 mg by mouth daily. 3. Colace 100 mg by mouth daily. 4. Lasix 40 mg by mouth daily. 5. Metoprolol tartrate 12.5 mg by mouth 2 times daily. 6. Symbicort two puffs inhaled 2 times daily. 7. MiraLax 17 g by mouth daily as needed for constipation. 8. Senna one tab by mouth daily. 9. Spiriva one capsule inhaled daily. 10. Nitroglycerin 0.4 mg sublingual every 5 minutes as needed for pain. 11. Multivitamin one tablet by mouth daily. 12. Pulmicort neb 0.25 mg inhaled 2 times daily. 13. Albuterol neb 2.5 mg TID HISTORY OF PRESENT ILLNESS AND HOSPITAL SUMMARY: Please see the full history and physical by Dr. Rodolfo Goldstein for full details. Briefly, Mr. Bower is an 85- year-old male with a past medical history as above who presented to the hospital with increasing shortness of breath and difficulty swallowing. The patient has extensive infiltrate in the right lung and was admitted to the ICU for Vapotherm. The patient was started on IV antibiotics. Over the following days, he worsened and subsequently required intubation, which was done by Dr. Enciso on 03/07/16. He was continued on antibiotics and was finally able to be extubated on 03/12/16. The patient received 7 days of antibiotics including fluconazole for possible fungal pneumonia. The patient was transferred to the floor where he remained on 4 L of oxygen. He underwent swallow evaluation. He was placed on a pureed-solids with [id number] diet. The patient completed full courses of antibiotics in the hospital and will not need any on discharge. He remained on 4 L, and he will be transferred to [facility] for continued rehab. If he does not do well he may be appropriate for palliative care/hospice evaluation. TIME SPENT: Total time spent on this discharge - 40 minutes. This is a summary of the hospitalization; please see the full medical record for further details. [id number]/CPS #: [id number] MTDD
[2016-03-18] MEDS: Senna TAB PO SCH (08:53)
[2016-03-18] MEDS: Docusate CAP* 100 MG PO SCH (08:53)
[2016-03-18] MEDS: Tiotropium CAP.INH* CAP.INH/18 MCG (USE ORDER SET !) INH SCH (09:07)
[2016-03-18] MEDS: Mometasone/Formoter 200/5 MDI INH SCH (09:07)
[2016-03-18 09:23] VITALS: BP 120/64
--- NOTE | 2016-03-18 09:24 | DCNOTE ---
Patient seen this morning. Laying in chair. Asked if he is having any shortness of breath or if he is breathing OK and he said "both". On exam, some mild coarse rales in bases, otherwise clear, loose dentures, RRR, s1 and s2 present, no m/g/r [facility], if patient does not fare well may be a good candidate for palliative care involvement.
[2016-03-18] MEDS: Furosemide TAB* 20 MG PO SCH (09:36)
[2016-03-18] MEDS: Aspirin Low Dose CHEW TAB* 81 MG PO SCH (09:36)
[2016-03-18] MEDS: Metoprolol Tartrate TAB* 25 MG PO SCH (09:36)
[2016-03-18] MEDS: Heparin VIAL(*) 5000 UNITS/ML VIAL (FIVE THOUSAND) SUBCUT SCH (09:36)
== END 2016-03-18 11:10 | DRG 208 ==
LOC: ED 11:34 → ICU 13:48 → MED 03-14 10:06
PROVIDERS: ADMIT Internal Medicine Critical Care Medicine; ATTEND Hospitalist
PROC: 5A1945Z Respiratory Ventilation, 24-96 Consecutive Hours (ICD-10-PCS; principal; 2016-03-07)
PROC: 0BH17EZ Insertion of Endotracheal Airway into Trachea, Via Natural or Artificial Opening (ICD-10-PCS; 2016-03-07)
PROC: 5A09357 Assistance with Respiratory Ventilation, Less than 24 Consecutive Hours, Continuous Positive Airway Pressure (ICD-10-PCS; 2016-03-07)
DX: J44.0 Chronic obstructive pulmonary disease with (acute) lower respiratory infection (principal); J69.0 Pneumonitis due to inhalation of food and vomit; J96.02 Acute respiratory failure with hypercapnia; J96.01 Acute respiratory failure with hypoxia; J15.211 Pneumonia due to Methicillin susceptible Staphylococcus aureus; J16.8 Pneumonia due to other specified infectious organisms; B48.8 Other specified mycoses; I25.10 Atherosclerotic heart disease of native coronary artery without angina pectoris; R62.7 Adult failure to thrive; Z79.82 Long term (current) use of aspirin; J45.909 Unspecified asthma, uncomplicated; Z86.711 Personal history of pulmonary embolism; Z88.8 Allergy status to other drugs, medicaments and biological substances; I10 Essential (primary) hypertension; Z98.49 Cataract extraction status, unspecified eye; M95.4 Acquired deformity of chest and rib; J44.1 Chronic obstructive pulmonary disease with (acute) exacerbation; Z66 Do not resuscitate
CPT/HCPCS: 36415; 36600; 71010; 80048; 80053; 81003; 81015; 82803; 83605; 83735; 83880; 84100; 84145; 84484; 85025; 85027; 85610; 85730; 87040; 87070; 87077; 87186; 87205; 87502; 87641; 93005; 94002; 94003; 94640; 94660; 94667; 94760; 99285; A9270-GY; G8996-GN-CL; G8997-GN-CJ; J0330; J0696; J1450; J1644; J1940; J1956; J2270; J2704; J2920; J2930; J3010; J3370